=== PATIENT | female | born 1965 | race Hispanic/Latino ===

== ENCOUNTER 2021-02-21 12:18 | Observation (INO) | payer MEDICAID, OTHER ==
--- NOTE | 2021-02-21 12:40 | Emergency Department Report ---
ED General Adult HPI - General Chief complaint: Chest Pain Stated complaint: CHEST PAIN PUI?: No Time Seen by Provider: 02/21/21 12:27 Source: patient, EMS (Verbal report received from emergency medical services. EMS documentation not available at time of chart dictation ), RN notes reviewed Mode of arrival: Stretcher Limitations: No Limitations - History of Present Illness Initial comments: The patient was evaluated in the emergency department for symptoms described in the history of present illness. He/she was evaluated in the context of the global COVID-19 pandemic, which necessitated consideration that the patient mi ght be at risk for infection with the virus that causes COVID-19. Institutional protocols and algorithms that pertain to the evaluation of patients at risk for COVID-19 are in a state of rapid change based on information released by regulatory bodies including the CDC and federal and state organizations. These policies and algorithms were followed during the patient's care in the emergency department. Please note that these policies, procedures and recommendations changed on a rapid basis. Patient is a 56-year-old female. She is not known to myself previously. Her past medical history includes obesity, hypertension, heart disease with stent, on daily aspirin therapy. She moved here from [facility] a few weeks ago. She reports that in October of this year, she had a heart attack at [facility], and was treated with a stent. She does not know if she has a drug-eluting stent or bare metal stent, but she does know that it is a [employer] stent. She is compliant with her aspirin therapy. She presents to the ER today with a complaint of central and left-sided chest pain, that moved to the back, neck and left arm. There is no vomiting. There is no diaphoresis. There is positive chronic cough, and positive chronic shortness of breath. Denies travel, surgery, immobilization, leg pain and leg swelling. Also endorses nontraumatic right posterior paralumbar thoracic pain, "I am worried about a blood clot." Also endorses chronic abdominal pain. On review of systems, has not had loss of taste or smell, reports that she cannot get the Covid vaccination, "because I am allergic to everything in it." Also denies dysuria, denies hematemesis and melena. She has internal hemorrhoids, and reports of brown stool with blood a few days ago, but nothing within the past 24 to 48 hours. She took aspirin this morning. She has also taken nitroglycerin. Minimal improvement with nitroglycerin. Does not use any recreational drugs, or erectil e dysfunction medication. -: Gradual, hour(s) Location: chest, back, abdomen Radiation: neck, extremity Quality: aching Consistency: intermittent Improves with: rest Worsens with: medication - Related Data Home Medications Medication Instructions Recorded Confirmed Last Taken Aspirin 81 mg PO DAILY 02/21/21 02/21/21 02/21/21 Montelukast Sodium 10 mg PO DAILY 02/21/21 02/21/21 Unknown Nitroglycerin 0.4 mg SUBLINGUAL PRN 02/21/21 02/21/21 02/21/21 Prasugrel 10 mg PO DAILY 02/21/21 02/21/21 02/21/21 Pregabalin 100 mg PO TID 02/21/21 02/21/21 02/21/21 Primidone 50 mg PO BID 02/21/21 02/21/21 02/21/21 Promethazine 25 mg PO Q6HR 02/21/21 02/21/21 Unknown Simvastatin 20 mg PO QPM 02/21/21 02/21/21 02/21/21 Spironolactone 25 mg PO DAILY 02/21/21 02/21/21 02/21/21 carvediloL 12.5 mg PO BID 02/21/21 02/21/21 02/21/21 Allergies Allergy/AdvReac Type Severity Reaction Status Date / Time duloxetine Allergy Rash Verified 02/21/21 12:57 lisinopril Allergy Hives Verified 02/21/21 12:57 metformin Allergy Hives Verified 02/21/21 12:57 Penicillins Allergy Angioedema Verified 02/21/21 16:52 sulpiride Allergy Hives Verified 02/21/21 12:57 codeine AdvReac Seizure Verified 02/21/21 12:49 ED Review of Systems ROS: Stated complaint: CHEST PAIN Other details as noted in HPI Constitutional: malaise. denies: fever Eyes: denies: eye discharge ENT: denies: epistaxis Respiratory: cough, shortness of breath Cardiovascular: chest pain Gastrointestinal: abdominal pain. denies: vomiting, hematemesis, melena Genitourinary: denies: dysuria Musculoskeletal: back pain Neurological: weakness Hematological/Lymphatic: denies: easy bleeding ED Past Medical Hx - Medications Home Medications: Home Medications Medication Instructions Recorded Confirmed Last Taken Type Aspirin 81 mg PO DAILY 02/21/21 02/21/21 02/21/21 History Montelukast Sodium 10 mg PO DAILY 02/21/21 02/21/21 Unknown History Nitroglycerin 0.4 mg SUBLINGUAL PRN 02/21/21 02/21/21 02/21/21 History Prasugrel 10 mg PO DAILY 02/21/21 02/21/21 02/21/21 History Pregabalin 100 mg PO TID 02/21/21 02/21/21 02/21/21 History Primidone 50 mg PO BID 02/21/21 02/21/21 02/21/21 History Promethazine 25 mg PO Q6HR 02/21/21 02/21/21 Unknown History Simvastatin 20 mg PO QPM 02/21/21 02/21/21 02/21/21 History Spironolactone 25 mg PO DAILY 02/21/21 02/21/21 02/21/21 History carvediloL 12.5 mg PO BID 02/21/21 02/21/21 02/21/21 History ED Physical Exam - General Limitations: No Limitations General appearance: alert, anxious, obese - Head Head exam: Present: atraumatic, normocephalic - Eye Eye exam: Present: normal appearance, EOMI. Absent: nystagmus - ENT ENT exam: Present: normal exam, normal orophraynx, mucous membranes moist, normal external ear exam - Neck Neck exam: Present: normal inspection, full ROM. Absent: tenderness, me ningismus - Respiratory Respiratory exam: Present: rhonchi. Absent: respiratory distress, wheezes, rales, stridor, decreased breath sounds - Cardiovascular Cardiovascular Exam: Present: regular rate, normal rhythm, normal heart sounds. Absent: bradycardia, tachycardia, irregular rhythm, systolic murmur, diastolic murmur, rubs, gallop - GI/Abdominal GI/Abdominal exam: Present: soft, tenderness. Absent: distended, guarding, rebound, rigid, pulsatile mass - Extremities Exam Extremities exam: Present: normal inspection, other (2+ pulses noted in the bilateral upper and lower extremities. There is no palpable cord. negative Homans sign. Muscular compartments are soft. The pelvis is stable.). Absent: calf tenderness - Back Exam Back exam: Present: normal inspection, CVA tenderness (L), paraspinal tenderness (There is right-sided parathoracic tenderness, near the distal T-spine. There is skin induration. There is no redness, pus or streaking.). Absent: vertebral tenderness (There is no midline spinal tenderness) - Neurological Exam Neurological exam: Present: alert, oriented X3, other (No facial droop. Tongue midline. Extraocular movements intact bilaterally. Facial sensation intact to light touch in V1, V2, V3 distribution bilaterally. 5 and a 5 strength in 4 extremities. Sensation intact to light touch in 4 extremities.). Absent: motor sensory deficit - Psychiatric Psychiatric exam: Present: anxious - Skin Skin exam: Present: warm, dry, intact, normal color. Absent: rash ED Course Vital Signs 02/21/21 02/21/21 02/21/21 12:53 13:34 13:40 Temperature 98.0 F Pulse Rate 69 65 Respiratory 20 16 Rate Blood Pressure 112/63 110/51 O2 Sat by Pulse 96 Oximetry 02/21/21 02/21/21 02/21/21 14:01 14:31 15:00 Temperature Pulse Rate 69 64 64 Respiratory 14 16 16 Rate Blood Pressure O2 Sat by Pulse 94 94 Oximetry 02/21/21 02/21/21 02/21/21 15:33 16:01 16:31 Temperature Pulse Rate 64 60 62 Respiratory 11 L 11 L 14 Rate Blood Pressure 143/66 123/51 116/89 O2 Sat by Pulse 97 96 91 Oximetry 02/21/21 02/21/21 02/21/21 16:41 16:51 17:01 Temperature Pulse Rate 65 Respiratory 13 Rate Blood Pressure 116/89 116/89 116/89 O2 Sat by Pulse 93 95 95 Oximetry 02/21/21 17:11 Temperature Pulse Rate Respiratory Rate Blood Pressure 116/89 O2 Sat by Pulse 91 Oximetry - Reevaluation(s) Reevaluation #1: 02/21/21 13:05 Differential diagnosis, including but not limited to: Acute coronary syndrome, pulmonary embolism, skin induration, colitis, diverticulitis, perforated viscus, and, renal colic, urinary tract infection Assessment and plan: 56-year-old female with multiple complaints. Complaint #1, chest pain. Patient has a history of ischemic heart disease. Her clinical history is concerning today. Her EKG is abnormal but not immediately diagnostic. We have requested medical records from [facility]. Obtain appropriate laboratory studies, and treat the patient's pain. She states that she can tolerate morphine and is not allergic. Anticipate admission for cardiac or stratification. Pulmonary embolism also possibility. Complaints #2, chronic abdominal pain. Obtain appropriate laboratory studies. Treat pain. Obtain CT scan of the abdomen pelvis. Reassess. We anticipate admission to the medical service once diagnostics have resulted. I have discussed this plan of care with the patient, who articulated understanding, and is amenable to this plan of care. Reevaluation #2: 02/21/21 14:04 Medical records are obtained from [facility]. Patient had laparoscopic cholecystectomy performed, October 2020, for biliary dyskinesia. It appears that she was also admitted to the internal medicine service and has a history of nonobstructive coronary artery disease, with reported IA at the age of 38 while in [place], lower extremity edema, morbid obesity, COPD, and obstructive sleep apnea. Patient also called as a STEMI alert at that time. She was found to have an inferior wall STEMI. Her cardiac catheterization showed a high-grade thrombotic subtotal occlusion in the circumflex/OM. Patient had emergent revascularization with placement of a drug-eluting stent. She subsequently had an echocardiogram which demonstrated a normal ejection fraction. She was monitored for 48 hours post IA, and did not have any significant arrhythmias. Patient was then reevaluated it appears that she was discharged from the emergency room. December 2020, with a complaint of left-sided chest pain that radiates to the back. it appears that she was discharged from the emergency room She also had an MRI of her lumbar spine, December 2020, which demonstrated stable findings of mid to lower lumbar spondylolysis, disc protrusions redemonstrated L4, L5, found to be stable, with no lumbar nerve impingement or entrapment. No compression fracture, deformity, or bone marrow abnormality was also noted. She also had an MRI of her cervical spine, which showed changes of mild spondylosis, C5 and 6, right neuroforaminal narrowing, mild ventral cord impingement by a small broad-based disc protrusion at C3/4. These findings are unchanged from a prior CT scan from 4 years prior. She was not found to have any subluxation or posttraumatic findings. Reevaluation #3: 02/21/21 15:42 Patient's pain was improved with morphine and nitroglycerin. Dr. Gibson will accept this patient to the medical service for accelerated cardiac risk ratification. Reevaluation #4: 02/21/21 16:07 CT angio chest negative for acute findings. Reevaluation #5: 02/21/21 16:16 CT scan of the abdomen pelvis negative for acute findings. ED Medical Decision Making - Lab Data Result diagrams: 02/22/21 05:28 02/22/21 05:28 Vital Signs 02/21/21 12:53 Temperature 98.0 F Pulse Rate 69 Respiratory 20 Rate Blood Pressure 112/63 O2 Sat by Pulse 96 Oximetry - EKG Data -: EKG Interpreted by [facility] EKG shows normal: sinus rhythm Rate: normal - EKG Data When compared to previous EKG there are: previous EKG unavailable 02/21/21 13:07 EKG interpreted at 12: 42 Sinus rhythm, 76 bpm, normal axis, nonspecific T wave abnormalities, low voltage in the lateral leads, motion artifact, QTC 468 ms. This is an abnormal EKG. This is not a STEMI. There is no prior for comparison at this time. - Radiology Data Radiology results: pending, report reviewed, image reviewed [facility] [address] [place] [address] XRay Report Signed Patient: LAURYN LEACH MR#: [id number] : 1965 Acct:[id number] Age/Sex: 56 / F ADM Date: 02/21/21 Loc: ED Attending DrKieran cox Physician: VAN CASTILLO MD Date of Service: 02/21/21 Procedure(s): XR chest 1V ap Accession Number(s): [id number] cc: VAN CASTILLO MD Fluoro Time In Minutes: XR chest 1V ap INDICATION / CLINICAL INFORMATION: acute chest pain. COMPARISON: None available. FINDINGS: SUPPORT DEVICES: None. HEART /PULMONARY VASCULATURE: Cardiac silhouette is enlarged without significant pulmonary vasculature congestion. LUNGS / PLEURA: No significant pulmonary or pleural abnormality. No pneumothorax. ADDITIONAL FINDINGS: No significant additional findings. IMPRESSION: Cardiomegaly without overt failure or other acute chest process. Signer Name: Edu Kwon MD Signed: 02/21/2021 2:19 PM Workstation Name: [id number] Transcribed By: HALEY Dictated By: EDU KWON MD Electronically Authenticated By: EDU KWON MD Signed Date/Time: 02/21/211418 DD/ 1418 Critical Care Time: Yes Critical care time in (mins) excluding proc time.: 35 Critical care attestation.: If time is entered above; I have spent that time in minutes in the direct care of this critically ill patient, excluding procedure time. ED Disposition Clinical Impression: Acute chest pain, Acute abdominal pain, Coronary artery disease Disposition: OP ADMIT IP TO THIS HOSP Is pt being admited?: Yes Does the pt Need Aspirin: No (Took aspirin today) Condition: Good Heart Score - HEART Score History: Moderately suspicious EKG: Non-specific Age: 45-65 Risk factors: > 3 risk factors or hx of atherosclerotic disease Troponin: < normal limit HEART Score: 5 - EKG Read Time Time EKG Completed: 12:42 EKG Read Time: 12:43 - Critical Actions Critical Actions: 4-6 pts:12-16.6% risk of adverse cardiac event. Should be admitted
[2021-02-21] MEDS ORDERED: MORPHINE 4 MG/1 ML INJ IV ONE (12:55)
[2021-02-21 13:14] LABS: Basophils # (Auto) 0.1 K/mm3 (0.0-0.1); Basophils % (Auto) 0.7 % (0.0-1.8); Eosinophils # (Auto) 0.2 K/mm3 (0.0-0.4); Eosinophils % (Auto) 2.4 % (0.0-4.3); Hematocrit 36.5 % (30.3-42.9); Hemoglobin 12.5 gm/dl (10.1-14.3); Lymphocytes # (Auto) 1.7 K/mm3 (1.2-5.4); Lymphocytes % (Auto) 23.5 % (13.4-35.0); Mean Corpuscular HGB Conc 34 % (30-34); Mean Corpuscular Volume 87 fl (79-97); Monocytes # (Auto) 0.4 K/mm3 (0.0-0.8); Monocytes % (Auto) 5.3 % (0.0-7.3); Platelet Count 292 K/mm3 (140-440); Red Blood Count 4.21 M/mm3 (3.65-5.03); Red Cell Distribution Width 15.4 % (13.2-15.2)
[2021-02-21 13:24] LABS: INR 0.93 (0.87-1.13)
[2021-02-21] MEDS ORDERED: NITROGLYCERIN 0.4 MG TAB SUBL SL PRN ×2 (13:37→17:00)
[2021-02-21] MEDS ORDERED: ONDANSETRON 4 MG/2 ML INJ IV ONE (13:37)
[2021-02-21] MEDS ORDERED: SODIUM CHLORIDE 0.9% 1000 ML 500 ML IV ONE (13:37)
[2021-02-21 13:40] LABS: Alanine Aminotransferase 18 units/L (7-56); Albumin 4.2 g/dL (3.9-5); Blood Urea Nitrogen 11 mg/dL (7-17); Calcium 9.3 mg/dL (8.4-10.2); Hemolysis Index 9
[2021-02-21 13:47] LABS: BUN/Creatinine Ratio 16
--- NOTE | 2021-02-21 14:23 | XRay Report ---
XR chest 1V ap INDICATION / CLINICAL INFORMATION: acute chest pain. COMPARISON: None available. FINDINGS: SUPPORT DEVICES: None. HEART /PULMONARY VASCULATURE: Cardiac silhouette is enlarged without significant pulmonary vasculatur e congestion. LUNGS / PLEURA: No significant pulmonary or pleural abnormality. No pneumothorax. ADDITIONAL FINDINGS: No significant additional findings. IMPRESSION: Cardiomegaly without overt failure or other acute chest process. Signer Name: Jairon Kwon MD Signed: 02/21/2021 2:19 PM Workstation Name: [id number]
--- NOTE | 2021-02-21 16:05 | Cat Scan Report ---
CTA CHEST WITH IV CONTRAST INDICATION / CLINICAL INFORMATION: acute cp, back pain 100 ML OMNI 350 . TECHNIQUE: Axial CT images were obtained through the chest after injection of 100 cc Omnipaque 350 milligrams pe rcent IV were submitted to ca IV contrast. 3 plane MIP and/or 3D reconstructions were produced. All C T scans at this location are performed using CT dose reduction for ALARA by means of automated exposu re control. COMPARISON: None available. FINDINGS: PULMONARY ARTERIES: No pulmonary emboli. THORACIC AORTA: No significant abnormality. HEART: No significant abnormality. CORONARY ARTERIES: No significant calcification. PLEURA: No pleural effusion. No pneumothorax. LYMPH NODES: No significant adenopathy. LUNGS: Chronic lung disease is present No acute air space or interstitial disease. ADDITIONAL FINDINGS: None. UPPER ABDOMEN: No acute findings. SKELETAL STRUCTURES: No significant osseous abnormality. IMPRESSION: 1. No CT evidence for pulmonary embolism. 2. Chronic lung disease Signer Name: Navneet Plunkett MD Signed: 02/21/2021 3:58 PM Workstation Name: [id number]
--- NOTE | 2021-02-21 16:09 | Cat Scan Report ---
CTA chest with contrast CT abdomen and pelvis with contrast INDICATION : abd pain, chest pain, back pain 100 ML OMNI 350 . TECHNIQUE: Axial imaging performed through the chest, with contrast bolus timing set to maximize opa cification of the pulmonary arteries. 3-plane MIP reformatted images were obtained. Axial imaging was also performed through the abdomen and pelvis with the use of intravenous contrast. All CT scans at this location are performed using CT dose reduction for ALARA by means of automated exposure control. 100 mL of intravenous contrast administered. COMPARISON: None FINDINGS: CTA chest: Contrast bolus timing is adequate with no filling defect present to suggest PTE. There is mild atherosclerotic disease in the coronary arteries. Heart size is normal. No pathologic mediastina l adenopathy. There is severe emphysema with no mass identified. There is a primarily groundglass nod ule in the left upper lobe measuring 7 x 4 mm on image #68 of series #4. Mild bibasilar atelectasis i s present. No chest wall abnormality identified. There is mild degenerative change within the spine w ith no acute osseous abnormality identified. CT abdomen/pelvis: The gallbladder is surgically absent. The liver demonstrates mild steatosis with n o focal mass. The spleen, angry as, adrenals, kidneys, and proximal GI tract appear unremarkable exce pt for a small hiatal hernia. There is moderate atherosclerotic disease in the abdominal aorta and br anch vessels. No pelvic free fluid. The urinary bladder is mostly collapsed. Uterus is surgically absent. No acute colonic abnormality identified. The terminal ileum and appendix appear normal. There are degenerative changes in the spine and pelvis with nothing acute. IMPRESSION: 1. Negative for PTE. The thoracic aorta also appears normal. 2. Advanced emphysema with primarily groundglass nodule in the left upper lobe measuring [address] see below recommendations. 3. No acute abnormality in the abdomen or pelvis. INCIDENTAL PULMONARY NODULE RECOMMENDATION RECOMMENDATION: Subsolid Nodule (Ground glass) >=6 mm - CT at 6-12 months to confirm persistence, then CT every 2 years until 5 years Note These recommendations do not apply to lung cancer screening, patients with immunosuppression, o r patients with known primary cancer. Note Newly detected indeterminate nodule in persons 35 years of age or older. Persons under the age of 35 should not receive follow-up unless there is a known primary cancer. Note A Perifissural Nodule is a fissure-attached/subpleural, homogeneous, solid nodule that had smoo th margins and an oval, lentiform, or triangular shape. They represent about 20% of nodules detected in lung cancer screening, are invariably benign, and do not require follow-up. Nodules 10 mm or large r (or those with suspicious features) will continue to be managed based on the size criteria. Low Risk Patient -- minimal or absent history of smoking and of other known risk factors. High Risk Patient -- history of smoking or of other known risk factors. Nodule dimensions are average of long and short axes, rounded to the nearest millimeter. Based on 2017 Fleischner Society Guidelines found in Radiology 2017 284:228-243. https://doi.[email or web address]/[email or web address] https://www.ncbi.nlm.nih.gov/pmc/articles/CQB8521966/ Signer Name: Masood Hickman MD Signed: 02/21/2021 4:03 PM Workstation Name: [id number]
--- NOTE | 2021-02-21 16:51 | History and Physical Report ---
History of Present Illness Date of examination: 02/21/21 Date of admission: 02/21/21 15:43 Chief complaint: Chest pain History of present illness: Patient 56-year-old female with a comorbid illness of morbid obesity, diabetes, hyperlipidemia and hypertension presents with an acute episode of chest pain. Patient states she was laying down in bed and had an acute episode of chest pain substernal radiating to her back down her left arm and occasionally into the ne ck. Chest pain was associated with shortness of breath and diaphoresis. Patient had nausea but no vomiting. Patient took nitroglycerin x2 and aspirin x2 with minimal relief and therefore called 911. Patient has had history of a recent [place] with stent placed for two-vessel disease in [place] on October 2020 several months ago. Patient states since that time she had been chest pain-free since her stent placement but this is the first time she had chest pain today. Patient is currently chest pain-free feels comfortable. Vital signs stable. Initial work-up in ED has found to be negative. Patient has had negative troponin EKG nonspecific D-dimer unremarkable. Did follow-up on CT scan chest abdomen pelvis also unremarkable. See chronic changes that will be noted in assessment and plan. Past History Past Medical History: acute [place], arrhythmia, CAD, diabetes, GERD, heart failure, hypertension, hyperlipidemia. denies: atrial fib, anemia, arthritis, cancer, COPD, dialysis, DVT, ESRD, hepatitis, HIV/AIDS, hyperthyroidism, hypothyroidism, liver disease, migraines, PVD, pulmonary embolism, renal failure, seizures, stroke, sarcoidosis Past Surgical History: cholecystectomy, hysterectomy, hernia repair, total knee replacement, Other (Surgical history) Social history: no significant social history, lives with family, smoking. denies: alcohol abuse, prescription drug abuse Family history: CAD, cancer, other (Significant past medical history mother and father both early with heart disease. Also breast cancer on maternal side of the family.) Medications and Allergies Allergies Allergy/AdvReac Type Severity Reaction Status Date / Time duloxetine Allergy Rash Verified 02/21/21 12:57 lisinopril Allergy Hives Verified 02/21/21 12:57 metformin Allergy Hives Verified 02/21/21 12:57 Penicillins Allergy Angioedema Verified 02/21/21 16:52 sulpiride Allergy Hives Verified 02/21/21 12:57 codeine AdvReac Seizure Verified 02/21/21 12:49 Home Medications Medication Instructions Recorded Confirmed Last Taken Type Aspirin 81 mg PO DAILY 02/21/21 02/21/21 02/21/21 History Montelukast Sodium 10 mg PO DAILY 02/21/21 02/21/21 Unknown History Nitroglycerin 0.4 mg SUBLINGUAL PRN 02/21/21 02/21/21 02/21/21 History Prasugrel 10 mg PO DAILY 02/21/21 02/21/21 02/21/21 History Pregabalin 100 mg PO TID 02/21/21 02/21/21 02/21/21 History Primidone 50 mg PO BID 02/21/21 02/21/21 02/21/21 History Promethazine 25 mg PO Q6HR 02/21/21 02/21/21 Unknown History Simvastatin 20 mg PO QPM 02/21/21 02/21/21 02/21/21 History Spironolactone 25 mg PO DAILY 02/21/21 02/21/21 02/21/21 History carvediloL 12.5 mg PO BID 02/21/21 02/21/21 02/21/21 History Active Meds: Active Medications Nitroglycerin (Nitroglycerin 0.4 Mg Tab Subl) 0.4 mg SL .Q5MIN PRN PRN Reason: Chest Pain Last Admin: 02/21/21 13:34 Dose: 0.4 mg Documented by: Review of Systems Constitutional: no weight loss, no weight gain, no fever, no chills, no sweats, no anorexia Ears, nose, mouth and throat: no ear pain, no decreased hearing, no mouth pain, no hoarseness Cardiovascular: chest pain, palpitations, lightheadedness, shortness of breath, leg edema, no orthopnea, no rapid/irregular heart beat, no edema, no syncope, no dyspnea on exertion, no paroxysmal nocturnal dyspnea, no claudication, no phlebitis, no high blood pressure, no decreased exercise tolerance Respiratory: shortness of breath, no cough, no excessive sputum, no hemoptysis, no congestion, no wheezing, no pain, no respiratory infections, no home oxygen Gastrointestinal: no abdominal pain, no nausea, no vomiting, no constipation, no change in bowel habits, no melena, no loss of appetite, no early satiety, no dyspepsia/bloating Musculoskeletal: shooting arm pain, no morning stiffness, no muscle cramps, no limitation of motion, no fractures, no loss of height Neurological: no transient paralysis, no weakness, no numbness, no seizures, no headaches, no confusion, no sensory deficit, no loss of vision, no burning pain Psychiatric: no sleep disturbances, no change in libido, no suicidal ideation, no hopelessness, no difficulties concentrating, no irritability Endocrine: no heat intolerance, no polyphagia, no polydipsia, no nocturia, no proptosis, no thyroid mass, no high blood sugars, no recent glucocorticoid use Hematologic/Lymphatic: no easy bruising, no lymphadenopathy Allergic/Immunologic: no allergic rhinitis, no anaphylaxis Exam - Constitutional Vitals: Temp Pulse Resp BP Pulse Ox 98.0 F 62 14 116/89 91 02/21/21 12:53 02/21/21 16:31 02/21/21 16:31 02/21/21 16:31 02/21/21 16:31 General appearance: Present: no acute distress, well-nourished - EENT Eyes: Present: PERRL ENT: hearing intact, clear oral mucosa - Neck Neck: Present: supple, normal ROM - Respiratory Respiratory effort: normal Respiratory: bilateral: CTA - Cardiovascular Heart Sounds: Present: S1 & S2. Absent: rub, click - Extremities Extremities: pulses symmetrical, No edema Peripheral Pulses: within normal limits - Abdominal General gastrointestinal: Present: soft, non-tender, non-distended, normal bowel sounds Female genitourinary: Present: normal - Integumentary Integumentary: Present: clear, warm, dry - Musculoskeletal Musculoskeletal: gait normal, strength equal bilaterally - Psychiatric Psychiatric: appropriate mood/affect, intact judgment & insight - Neurologic Neurologic: CNII-XII intact, moves all extremities HEART Score - HEART Score EKG: Non-specific Age: 45-65 Risk factors: > 3 risk factors or hx of atherosclerotic disease Troponin: Troponin T < 0.010 ng/mL (0.00-0.029) 02/21/21 12:50 Troponin: < normal limit - Critical Actions Critical Actions: 4-6 pts:12-16.6% risk of adverse cardiac event. Should be admitted Results - Labs CBC & Chem 7: 02/21/21 12:50 02/21/21 12:50 Labs: Laboratory Last Values WBC 7.4 K/mm3 (4.5-11.0) 02/21/21 12:50 RBC 4.21 M/mm3 (3.65-5.03) 02/21/21 12:50 Hgb 12.5 gm/dl (10.1-14.3) 02/21/21 12:50 Hct 36.5 % (30.3-42.9) 02/21/21 12:50 MCV 87 fl (79-97) 02/21/21 12:50 MCH 30 pg (28-32) 02/21/21 12:50 MCHC 34 % (30-34) 02/21/21 12:50 RDW 15.4 % (13.2-15.2) H 02/21/21 12:50 Plt Count 292 K/mm3 (140-440) 02/21/21 12:50 Lymph % (Auto) 23.5 % (13.4-35.0) 02/21/21 12:50 [place] % (Auto) 5.3 % (0.0-7.3) 02/21/21 12:50 Eos % (Auto) 2.4 % (0.0-4.3) 02/21/21 12:50 Baso % (Auto) 0.7 % (0.0-1.8) 02/21/21 12:50 Lymph # (Auto) 1.7 K/mm3 (1.2-5.4) 02/21/21 12:50 [place] # (Auto) 0.4 K/mm3 (0.0-0.8) 02/21/21 12:50 Eos # (Auto) 0.2 K/mm3 (0.0-0.4) 02/21/21 12:50 Baso # (Auto) 0.1 K/mm3 (0.0-0.1) 02/21/21 12:50 Seg Neutrophils % 68.1 % (40.0-70.0) 02/21/21 12:50 Seg Neutrophils # 5.0 K/mm3 (1.8-7.7) 02/21/21 12:50 PT 13.0 Sec. (12.2-14.9) 02/21/21 12:50 INR 0.93 (0.87-1.13) 02/21/21 12:50 D-Dimer 155.19 ng/mlDDU (0-234) 02/21/21 12:50 Sodium 135 mmol/L (137-145) L 02/21/21 12:50 Potassium 4.0 mmol/L (3.6-5.0) 02/21/21 12:50 Chloride 101.4 mmol/L (98-107) 02/21/21 12:50 Carbon Dioxide 23 mmol/L (22-30) 02/21/21 12:50 Anion Gap 15 mmol/L 02/21/21 12:50 BUN 11 mg/dL (7-17) 02/21/21 12:50 Creatinine 0.7 mg/dL (0.6-1.2) 02/21/21 12:50 Estimated GFR > 60 ml/min 02/21/21 12:50 BUN/Creatinine Ratio 16 % 02/21/21 12:50 Glucose 94 mg/dL (65-100) 02/21/21 12:50 Calcium 9.3 mg/dL (8.4-10.2) 02/21/21 12:50 Magnesium 2.00 mg/dL (1.7-2.3) 02/21/21 12:50 Total Bilirubin 0.40 mg/dL (0.1-1.2) 02/21/21 12:50 AST 17 units/L (5-40) 02/21/21 12:50 ALT 18 units/L (7-56) 02/21/21 12:50 Alkaline Phosphatase 107 units/L (35-129) 02/21/21 12:50 Total Creatine Kinase 51 units/L (30-135) 02/21/21 12:50 Troponin T < 0.010 ng/mL (0.00-0.029) 02/21/21 12:50 Total Protein 6.4 g/dL (6.3-8.2) 02/21/21 12:50 Albumin 4.2 g/dL (3.9-5) 02/21/21 12:50 Albumin/Globulin Ratio 1.9 % 02/21/21 12:50 Lipase 16 units/L (13-60) 02/21/21 12:50 - Imaging and Cardiology EKG: report reviewed, image reviewed Chest x-ray: report reviewed CT scan - abdomen: report reviewed CT scan - chest: report reviewed Assessment and Plan Advance Directives: Yes VTE prophylaxis?: Chemical Plan of care discussed with patient/family: Yes - Patient Problems (1) Acute abdominal pain Current Visit: Yes Status: Acute Plan to address problem: Abdominal pain has resolved this was most likely chest pain. Gastritis we will treat with proton pump inhibitor. (2) Acute chest pain Current Visit: Yes Status: Acute Plan to address problem: Acute chest pain patient heart score 4-5. Patient will most likely require follow-up cardiac catheterization since she just had stent placed several months ago. And now has persistent chest pain. Will most likely need eval of stent to see if it is maintained is patency obtain cardiology consult [facility] for further diagnostic evaluation and assessment. will rule out for [place] at this time. Continue nitroglycerin as needed aspirin daily. Cont risk stratification (3) Coronary artery disease Current Visit: Yes Status: Acute Plan to address problem: Patient two-vessel disease status post stent will place patient on antithrombin and antiplatelet in which she was already on secondary to recent stent placemet will place patient back on antistatin. Has been recently restratified several months ago less than 90 days with lipid panel. Will repeat lipid panel and see if medications need to be adjusted. There has been adequate time for follow-up lipid panel to optimize statin (4) Diabetes Current Visit: Yes Status: Acute Plan to address problem: Type II patient currently not taking any medications for her diabetes. Will follow with sliding scale insulin and treat with cardiac diet and consistent carbohydrate diet. (5) Hyperlipidemia Current Visit: Yes Status: Acute Plan to address problem: Continue statin as indicated.
[2021-02-21] MEDS ORDERED: ACETAMINOPHEN 325 MG TAB PO PRN ×2 (17:00)
[2021-02-21] MEDS ORDERED: oxyCODONE /ACETAMINOPHEN 5-325MG TAB PO PRN (17:00)
[2021-02-21] MEDS ORDERED: NALOXONE 0.4 MG/1 ML INJ IV PRN (17:00)
[2021-02-21] MEDS ORDERED: NON-FORMULARY EACH (Spironolactone 25 MG) PO SCH (17:30)
[2021-02-21] MEDS ORDERED: NON-FORMULARY EACH (Nitroglycerin 0.4 MG) SUBLINGUAL SCH (17:30)
[2021-02-21] MEDS ORDERED: ONDANSETRON 4 MG/2 ML INJ IV PRN (17:30)
[2021-02-21] MEDS ORDERED: ASPIRIN EC 81 MG TAB PO SCH (18:00)
[2021-02-21] MEDS ORDERED: SPIRONOLACTONE 25 MG TAB PO SCH (18:30)
[2021-02-21] MEDS ORDERED: PRIMIDONE 50 MG TAB PO SCH (22:00)
[2021-02-21] MEDS ORDERED: ENOXAPARIN 100 MG/1 ML INJ SUB-Q SCH ×2 (22:00)
[2021-02-21] MEDS ORDERED: INSULIN REGULAR, HUMAN 100 UNITS/1 ML SUB-Q SCH (22:00)
[2021-02-21] MEDS ORDERED: carvediloL 12.5 MG TAB PO SCH (22:00)
[2021-02-21] MEDS ORDERED: FAMOTIDINE 20 MG/2 ML INJ IV SCH (22:00)
[2021-02-21 22:13] LABS: Bilirubin,Urine NEG (Negative); Blood,Urine SM (Negative); Color,Urine Yellow (Yellow); Protein,Urine <15 mg/dL mg/dL (Negative); Urobilinogen,Urine < 2.0 mg/dL (<2.0)
[2021-02-22 04:33] VITALS: BP 106/50
[2021-02-22 05:50] LABS: Basophils # (Auto) 0.1 K/mm3 (0.0-0.1); Basophils % (Auto) 0.9 % (0.0-1.8); Eosinophils # (Auto) 0.2 K/mm3 (0.0-0.4); Hematocrit 35.9 % (30.3-42.9); Hemoglobin 12.1 gm/dl (10.1-14.3); Lymphocytes % (Auto) 31.8 % (13.4-35.0); Mean Corpuscular HGB Conc 34 % (30-34); Mean Corpuscular Volume 87 fl (79-97); Monocytes # (Auto) 0.4 K/mm3 (0.0-0.8); Monocytes % (Auto) 6.2 % (0.0-7.3); Platelet Count 279 K/mm3 (140-440); Red Blood Count 4.14 M/mm3 (3.65-5.03); Red Cell Distribution Width 15.2 % (13.2-15.2)
[2021-02-22 06:15] LABS: BUN/Creatinine Ratio 13; Blood Urea Nitrogen 10 mg/dL (7-17); Chol/HDL Ratio 4.87 %; HDL Cholesterol 33 mg/dL (40-59); Hemolysis Index 63; LDL Cholesterol,Direct 118 mg/dL (50-130)
[2021-02-22] MEDS ORDERED: PREGABALIN 50 MG CAP PO SCH (10:00)
[2021-02-22] MEDS ORDERED: PRASUGREL 10 MG TAB PO SCH (10:00)
--- NOTE | 2021-02-22 10:05 | Discharge Summary ---
Providers - Providers Date of Admission: 02/21/21 15:43 Date of discharge: 02/22/21 Attending physician: JEFERSON GROSS 02/21/21 Consult to Cardiac Rehabilitation [CONS] Routine Reason For Exam: Phase 1 02/21/21 17:00 Consult to Cardiology [CONS] Routine Consulting Provider: NURIA JACOBSON Reason For Exam: cp Primary care physician: DATA WAREHOUSE MANAGER Hospitalization Reason for admission: cp Condition: Good Hospital course: Patient 56-year-old female with a comorbid illness of morbid obesity, diabetes, hyperlipidemia and hypertension presents with an acute episode of chest pain. Patient stated she was laying down in bed and had an acute episode of chest pain substernal radiating to her back down her left arm and occasionally into the neck. Chest pain was associated with shortness of breath and diaphoresis. Patient had nausea but no vomiting. Patient took nitroglycerin x2 and aspirin x2 with minimal relief and therefore called 911. Patient has had history of a recent [place] with stent placed for two-vessel disease in [place] on October 2020 several months ago. Patient stated since that time she had been chest pain-free since her stent placement but this is the first time she had chest pain yesterday. Initial work-up in ED has found to be negative. Patient has had negative troponin EKG nonspecific D-dimer unremarkable. Did follow-up on CT scan chest abdomen pelvis also unremarkable. The history was taken from the chart from Dr. Gibson's H&P. Cardiology consultation was arranged. Patient was monitored on telemetry. Unfortunately, patient left AMA prior to my interview and examination. Dedicated discharge time 32 minutes Disposition: DC-07 LEFT AGAINST MED ADVICE Final Discharge Diagnosis (Prints w/discharge instructions): cp Core Measure Documentation - Palliative Care Palliative Care/ Comfort Measures: Not Applicable - Core Measures Any of the following diagnoses?: none Exam - Constitutional Vitals: Temp Pulse Resp BP Pulse Ox 97.9 F 92 H 24 106/50 99 02/22/21 03:59 02/22/21 05:04 02/22/21 05:04 02/22/21 03:59 02/22/21 05:04 General appearance: Present: no acute distress, well-nourished - EENT Eyes: Present: PERRL ENT: hearing intact, clear oral mucosa - Neck Neck: Present: supple, normal ROM - Respiratory Respiratory effort: normal Respiratory: bilateral: CTA - Cardiovascular Heart Sounds: Present: S1 & S2. Absent: rub, click - Extremities Extremities: pulses symmetrical, No edema Peripheral Pulses: within normal limits - Abdominal General gastrointestinal: Present: soft, non-tender, non-distended, normal bowel sounds Female genitourinary: Present: normal - Integumentary Integumentary: Present: clear, warm, dry - Musculoskeletal Musculoskeletal: gait normal, strength equal bilaterally - Psychiatric Psychiatric: appropriate mood/affect, intact judgment & insight - Neurologic Neurologic: CNII-XII intact, moves all extremities Plan Follow up with: PRIMARY CARE, [Primary Care Provider] - 3-5 Days Forms: AMA Form
--- NOTE | 2021-03-02 10:44 | Electrocardiograph Report ---
[facility] Test Date: 2021-02-21 Test Time: 12:42:25 Pat Name: LAURYN LEACH Department: Room: A490 Gender: F It Program Manager: IOANA : [id number] Requested By: VAN CASTILLO Order Number: [id number] Reading MD: Kelsie Snell Measurements Intervals [place] Rate: 76 P: 29 [place]: 136 QRS: 44 QRSD: 78 T: 19 QT: 415 QTc: 468 Interpretive Statements Sinus rhythm Nonspecific T abnormalities, anterior leads No previous ECG available for comparison Electronically Signed On 03-02-2021 10:44:34 EDT by Kelsie Snell
== END 2021-02-22 08:05 | disposition left against medical advice (07) ==
LOC: ED 12:18 → 4A 15:43
PROVIDERS: ADMIT Internal Medicine; ATTEND Hospitalist
DX: I25.10 Atherosclerotic heart disease of native coronary artery without angina pectoris (principal); R07.89 Other chest pain; R10.9 Unspecified abdominal pain; E11.9 Type 2 diabetes mellitus without complications; E78.5 Hyperlipidemia, unspecified; I11.0 Hypertensive heart disease with heart failure; I50.9 Heart failure, unspecified; E66.01 Morbid (severe) obesity due to excess calories; I25.2 Old myocardial infarction; I49.9 Cardiac arrhythmia, unspecified; Z90.49 Acquired absence of other specified parts of digestive tract; Z90.710 Acquired absence of both cervix and uterus; Z79.899 Other long term (current) drug therapy; Z98.890 Other specified postprocedural states; Z96.659 Presence of unspecified artificial knee joint; Z79.82 Long term (current) use of aspirin; Z68.35 Body mass index [BMI] 35.0-35.9, adult
CPT/HCPCS: 36415; 71045; 71275; 74177; 80048; 80053; 80061; 81001; 82550; 82962; 83036; 83690; 83735; 84484; 85025; 85379; 85610; 93005; 96372; 96374; 96375; 99291; G0378; J1650; J2270; J2405; J7030; Q9967; A9270-GY

== ENCOUNTER 2021-07-07 13:18 | Emergency (ER) | payer BC, MEDICAID ==
[2021-07-07 13:37] VITALS: BP 126/63
[2021-07-07] MEDS ORDERED: methylPREDNISolone Sod Succinate 125 MG/2 ML INJ IM ONE (15:01)
--- NOTE | 2021-07-07 15:05 | Emergency Department Report ---
ED General Adult HPI - General Chief complaint: Pain General Stated complaint: BODYACHES HEADACHE Time Seen by Provider: 07/07/21 14:37 Source: patient Mode of arrival: Stretcher Limitations: No Limitations - History of Present Illness Initial comments: 56-year-old female, history of MS, CAD, presents to ED with complaint of MS flare. Patient reports headache and diffuse body pain the last 3 weeks. Patient states she is taking tizanidine and tramadol without relief. Patient reports she is unable to take the medication prescribed for MS because of her sulfa allergy. Patient states her pain is chronic and the same as what she has experienced in the past. Patient states she does not currently have a PCP or neurologist here in [place] because she just moved here. Patient denies any fever -: week(s) (3) Severity scale (0 -10): 10 Quality: aching Consistency: constant Improves with: none Worsens with: none Associated Symptoms: denies: fever/chills, shortness of breath - Related Data Home Medications Medication Instructions Recorded Confirmed Last Taken Aspirin 81 mg PO DAILY 02/21/21 02/21/21 02/21/21 Montelukast Sodium 10 mg PO DAILY 02/21/21 02/21/21 Unknown Nitroglycerin 0.4 mg SUBLINGUAL PRN 02/21/21 02/21/21 02/21/21 Prasugrel 10 mg PO DAILY 02/21/21 02/21/21 02/21/21 Pregabalin 100 mg PO TID 02/21/21 02/21/21 02/21/21 Primidone 50 mg PO BID 02/21/21 02/21/21 02/21/21 Promethazine 25 mg PO Q6HR 02/21/21 02/21/21 Unknown Simvastatin 20 mg PO QPM 02/21/21 02/21/21 02/21/21 Spironolactone 25 mg PO DAILY 02/21/21 02/21/21 02/21/21 carvediloL 12.5 mg PO BID 02/21/21 02/21/21 02/21/21 Previous Rx's Medication Instructions Recorded Last Taken Type Naproxen [Naprosyn] 500 mg PO BID #20 tablet 07/07/21 Unknown Rx traMADoL [Ultram] 50 mg PO Q6HR PRN #7 tablet 07/07/21 Unknown Rx Allergies Allergy/AdvReac Type Severity Reaction Status Date / Time amoxicillin Allergy Unknown Verified 07/07/21 13:38 duloxetine Allergy Rash Verified 02/21/21 12:57 lisinopril Allergy Hives Verified 02/21/21 12:57 metformin Allergy Hives Verified 02/21/21 12:57 Penicillins Allergy Angioedema Verified 02/21/21 16:52 rosuvastatin [From Crestor] Allergy Unknown Verified 07/07/21 13:38 sulpiride Allergy Hives Verified 02/21/21 12:57 codeine AdvReac Seizure Verified 02/21/21 12:49 ED Review of Systems ROS: Stated complaint: BODYACHES HEADACHE Other details as noted in HPI Comment: All other systems reviewed and negative Constitutional: denies: fever Respiratory: denies: shortness of breath ED Past Medical Hx - Past Medical History Hx Hypertension: Yes Hx Heart Attack/AMI: Yes Additional medical history: Degenerative disc disease - Surgical History Hx Cholecystectomy: Yes Additional Surgical History: Bilateral knee surgery, hysterectomy - Social History Smoking Status: Current Every Day Smoker - Medications Home Medications: Home Medications Medication Instructions Recorded Confirmed Last Taken Type Aspirin 81 mg PO DAILY 02/21/21 02/21/21 02/21/21 History Montelukast Sodium 10 mg PO DAILY 02/21/21 02/21/21 Unknown History Nitroglycerin 0.4 mg SUBLINGUAL PRN 02/21/21 02/21/21 02/21/21 History Prasugrel 10 mg PO DAILY 02/21/21 02/21/21 02/21/21 History Pregabalin 100 mg PO TID 02/21/21 02/21/21 02/21/21 History Primidone 50 mg PO BID 02/21/21 02/21/21 02/21/21 History Promethazine 25 mg PO Q6HR 02/21/21 02/21/21 Unknown History Simvastatin 20 mg PO QPM 02/21/21 02/21/21 02/21/21 History Spironolactone 25 mg PO DAILY 02/21/21 02/21/21 02/21/21 History carvediloL 12.5 mg PO BID 02/21/21 02/21/21 02/21/21 History Naproxen [Naprosyn] 500 mg PO BID #20 tablet 07/07/21 Unknown Rx traMADoL [Ultram] 50 mg PO Q6HR PRN #7 tablet 07/07/21 Unknown Rx ED Physical Exam - General Limitations: No Limitations General appearance: alert, in no apparent distress - Head Head exam: Present: atraumatic, normocephalic - Eye Eye exam: Present: normal appearance, EOMI - ENT ENT exam: Present: mucous membranes moist - Neck Neck exam: Present: normal inspection - Respiratory Respiratory exam: Present: normal lung sounds bilaterally. Absent: respiratory distress - Cardiovascular Cardiovascular Exam: Present: regular rate, normal rhythm - GI/Abdominal GI/Abdominal exam: Absent: distended - Extremities Exam Extremities exam: Present: normal inspection - Neurological Exam Neurological exam: Present: alert, oriented X3, normal gait - Psychiatric Psychiatric exam: Present: normal affect, normal mood - Skin Skin exam: Present: warm, dry, intact, normal color ED Course Vital Signs 07/07/21 13:29 Temperature 98.7 F Pulse Rate 72 Respiratory 13 Rate Blood Pressure 126/63 [Left] O2 Sat by Pulse 98 Oximetry ED Medical Decision Making - Medical Decision Making 56-year-old female presents to ED with complaint of MS flare. Patient reports headache and diffuse body pain that is consistent with her usual MS-related pain. Patient denies any change in her pain. She denies any fever. Vital signs are normal. Exam is unremarkable. Patient given Solu-Medrol injection here in the ED. She will be discharged at this time. Outpatient follow-up advised, return cautions given. - Differential Diagnosis Multiple sclerosis, viral illness Critical care attestation.: If time is entered above; I have spent that time in minutes in the direct care of this critically ill patient, excluding procedure time. ED Disposition Clinical Impression: Generalized pain Disposition: 01 HOME / SELF CARE / HOMELESS Is pt being admited?: No Condition: Stable Instructions: Musculoskeletal Pain Prescriptions: Naproxen [Naprosyn] 500 mg PO BID #20 tablet traMADoL [Ultram] 50 mg PO Q6HR PRN #7 tablet PRN Reason: Pain Referrals: [facility] [Provider Group] - 3-5 Days BALTAZAR FARAH MD [Staff Physician] - 3-5 Days TRE RADFORD MD [Staff Physician] - 3-5 Days Time of Disposition: 15:04
== END 2021-07-07 15:23 | disposition home or self-care (01) ==
LOC: ED 13:18
DX: M79.18 Myalgia, other site (principal); I10 Essential (primary) hypertension; F17.200 Nicotine dependence, unspecified, uncomplicated; Z90.49 Acquired absence of other specified parts of digestive tract; Z88.0 Allergy status to penicillin; Z88.8 Allergy status to other drugs, medicaments and biological substances; Z88.5 Allergy status to narcotic agent
CPT/HCPCS: 96372; 99282; J2930

== ENCOUNTER 2022-03-04 13:44 | Emergency (ER) | payer SELFPAY ==
[2022-03-04] MEDS ORDERED: ASPIRIN 81 MG TAB CHEW PO ONE (15:35)
[2022-03-04] MEDS ORDERED: MORPHINE 4 MG/1 ML INJ IV ONE (15:36)
[2022-03-04] MEDS ORDERED: PROMETHAZINE 25 MG TAB PO ONE (16:04)
--- NOTE | 2022-03-04 16:04 | XRay Report ---
CHEST 1 VIEW INDICATION: Chest Pain. COMPARISON: 02/21/2021 FINDINGS: SUPPORT DEVICES: None. HEART: Within normal limits. LUNGS/PLEURA: No acute air space or interstitial disease. ADDITIONAL FINDINGS: None. IMPRESSION: 1. No acute findings. Signer Name: Masood Hickman MD Signed: 03/04/2022 4:00 PM Workstation Name: [id number]
--- NOTE | 2022-03-04 16:09 | Emergency Department Report ---
ED Chest Pain HPI - General Chief Complaint: Chest Pain Stated Complaint: CHEST PAIN Time Seen by Provider: 03/04/22 15:33 Source: patient, EMS Mode of arrival: Stretcher Limitations: No Limitations - History of Present Illness Initial Comments: 57-year-old morbidly obese female with a history of CAD s/p cardiac stent, COPD currently smoking who now presents with intermittent chest pain that started yesterday after an heated argument with family members. Patient was given nitro in route by EMS with some relief in pain. Patient was evaluated by EMS at the house yesterday and cleared/declined coming to the hospital for evaluation. Patient recur today and that was why she called for help. She also reports some sob with nausea and non bloody emesis. No fever or chills reported. Patient also mention history of atrial fibrillation and currently taking carvedilol. No other modifying or associated factors reported. Severity scale (0 -10): 10 - Related Data Home Medications Medication Instructions Recorded Confirmed Last Taken Aspirin 81 mg PO DAILY 02/21/21 02/21/21 02/21/21 Montelukast Sodium 10 mg PO DAILY 02/21/21 02/21/21 Unknown Nitroglycerin 0.4 mg SUBLINGUAL PRN 02/21/21 02/21/21 02/21/21 Prasugrel 10 mg PO DAILY 02/21/21 02/21/21 02/21/21 Pregabalin 100 mg PO TID 02/21/21 02/21/21 02/21/21 Primidone 50 mg PO BID 02/21/21 02/21/21 02/21/21 Promethazine 25 mg PO Q6HR 02/21/21 02/21/21 Unknown Simvastatin 20 mg PO QPM 02/21/21 02/21/21 02/21/21 Spironolactone 25 mg PO DAILY 02/21/21 02/21/21 02/21/21 carvediloL 12.5 mg PO BID 02/21/21 02/21/21 02/21/21 Previous Rx's Medication Instructions Recorded Last Taken Type Naproxen [Naprosyn] 500 mg PO BID #20 tablet 07/07/21 Unknown Rx traMADoL [Ultram] 50 mg PO Q6HR PRN #7 tablet 07/07/21 Unknown Rx Allergies Allergy/AdvReac Type Severity Reaction Status Date / Time amoxicillin Allergy Unknown Verified 03/04/22 13:47 duloxetine Allergy Rash Verified 03/04/22 13:47 lisinopril Allergy Hives Verified 03/04/22 13:47 metformin Allergy Hives Verified 03/04/22 13:47 Penicillins Allergy Angioedema Verified 03/04/22 13:47 rosuvastatin [From Crestor] Allergy Unknown Verified 03/04/22 13:47 sulpiride Allergy Hives Verified 03/04/22 13:47 codeine AdvReac Seizure Verified 03/04/22 13:47 Heart Score - HEART Score History: Moderately suspicious EKG: Normal Age: 45-65 Risk factors: 1-2 risk factors Troponin: < normal limit HEART Score: 3 - EKG Read Time Time EKG Completed: 14:02 EKG Read Time: 16:09 - Critical Actions Critical Actions: 4-6 pts:12-16.6% risk of adverse cardiac event. Should be admitted ED Review of Systems ROS: Stated complaint: CHEST PAIN Other details as noted in HPI Comment: All other systems reviewed and negative Cardiovascular: chest pain Psychiatric: anxiety ED Past Medical Hx - Past Medical History Hx Hypertension: Yes Hx Heart Attack/AMI: Yes Additional medical history: Degenerative disc disease - Surgical History Hx Cholecystectomy: Yes Additional Surgical History: Bilateral knee surgery, hysterectomy - Social History Smoking Status: Current Every Day Smoker - Medications Home Medications: Home Medications Medication Instructions Recorded Confirmed Last Taken Type Aspirin 81 mg PO DAILY 02/21/21 02/21/21 02/21/21 History Montelukast Sodium 10 mg PO DAILY 02/21/21 02/21/21 Unknown History Nitroglycerin 0.4 mg SUBLINGUAL PRN 02/21/21 02/21/21 02/21/21 History Prasugrel 10 mg PO DAILY 02/21/21 02/21/21 02/21/21 History Pregabalin 100 mg PO TID 02/21/21 02/21/21 02/21/21 History Primidone 50 mg PO BID 02/21/21 02/21/21 02/21/21 History Promethazine 25 mg PO Q6HR 02/21/21 02/21/21 Unknown History Simvastatin 20 mg PO QPM 02/21/21 02/21/21 02/21/21 History Spironolactone 25 mg PO DAILY 02/21/21 02/21/21 02/21/21 History carvediloL 12.5 mg PO BID 02/21/21 02/21/21 02/21/21 History Naproxen [Naprosyn] 500 mg PO BID #20 tablet 07/07/21 Unknown Rx traMADoL [Ultram] 50 mg PO Q6HR PRN #7 tablet 07/07/21 Unknown Rx ED Physical Exam - General Limitations: No Limitations General appearance: alert, in no apparent distress - Head Head exam: Present: normal inspection - Eye Eye exam: Present: normal appearance Pupils: Present: normal accommodation - ENT ENT exam: Present: normal exam, normal orophraynx, mucous membranes moist - Neck Neck exam: Present: normal inspection, full ROM. Absent: tenderness - Respiratory Respiratory exam: Present: normal lung sounds bilaterally, respiratory distress - Cardiovascular Cardiovascular Exam: Present: regular rate, normal rhythm, normal heart sounds - GI/Abdominal GI/Abdominal exam: Present: soft, distended, normal bowel sounds. Absent: tenderness, guarding, rebound - Extremities Exam Extremities exam: Present: normal inspection, full ROM, normal capillary refill. Absent: tenderness, pedal edema - Back Exam Back exam: Absent: tenderness - Neurological Exam Neurological exam: Present: alert, oriented X3 - Psychiatric Psychiatric exam: Present: normal affect, normal mood - Skin Skin exam: Present: warm, normal color ED Course Vital Signs 03/04/22 03/04/22 03/04/22 13:44 14:25 14:51 Temperature 97 F L Pulse Rate 80 67 Respiratory 19 Rate Blood Pressure 124/66 Blood Pressure 135/82 [Left] O2 Sat by Pulse 99 96 95 Oximetry 03/04/22 03/04/22 17:47 19:00 Temperature 98 F Pulse Rate 70 84 Respiratory 16 18 Rate Blood Pressure Blood Pressure 122/65 122/76 [Left] O2 Sat by Pulse 100 100 Oximetry - Reevaluation(s) Reevaluation #1: 03/04/22 20:41 Pt reevaluated and reports feeling better and was actually seen eating salty chips on her bed. I discussed her unremarkable workup with her and the likelihood of not been her heart but before I could cut her loose will need to get the second troponin. She and her family says they will rather signed out AMA and follow up with her PCP and Piping Supervisor. BENITA score - Benita Score Age > 65: (0) No Aspirin use within the Past 7 Days: (1) Yes 3 or more CAD Risk Factors: (0) No 2 or more Angina events in past 24 hrs: (1) Yes Known CAD with more than 50% Stenosis: (0) No Elevated Cardiac Markers: (0) No ST Deviation Greater than 0.5mm: (0) No BENITA Score: 2 ED Medical Decision Making - Lab Data Result diagrams: 03/04/22 15:53 03/04/22 15:53 - EKG Data -: EKG Interpreted by Me EKG shows normal: sinus rhythm Rate: normal - EKG Data 03/04/22 16:12 Noted with normal sinus rhythm at a rate of 67 bpm, normal QT but with nonspecific ST wave abnormality in this abnormal ECG. - Medical Decision Making Here with chest pain/pressure associated with nausea and non bloody emesis--differential could be but not limited to myocardial infarction, pulmonary embolism, costochondritis, anxiety, gastritis, GERD, pancreatitis, and or pyelonephritis--in order to rule out the above-- so will go ahead and order routine cardiopulmonary work-up that include troponin, EKG, chest x-ray, BNP, CKMB, and CBC, CMP and urinalysis for any correctable infectious process or electrolyte abnormality as a cause. Given in the meantime while waiting for the labs-- Pt have already given nitro by EMS, given in the ED morphine 4mg IV x 1 and Promethazine 25 mg Iv x 1-- Critical care attestation.: If time is entered above; I have spent that time in minutes in the direct care of this critically ill patient, excluding procedure time. ED Disposition Clinical Impression: Anxiety Chest pain Qualifiers: Chest pain type: unspecified Qualified Code(s): R07.9 - Chest pain, unspecified Disposition: LEFT AGAINST MEDICAL ADVICE Is pt being admited?: No Does the pt Need Aspirin: No Condition: Stable Instructions: Nonspecific Chest Pain, Adult Referrals: TRE RADFORD MD [Primary Care Provider] - 3-5 Days Time of Disposition: 05:43
[2022-03-04 16:16] LABS: Basophils # (Auto) 0.1 K/mm3 (0.0-0.1); Basophils % (Auto) 0.6 % (0.0-1.8); Eosinophils # (Auto) 0.1 K/mm3 (0.0-0.4); Eosinophils % (Auto) 1.8 % (0.0-4.3); Hematocrit 36.8 % (30.3-42.9); Hemoglobin 12.4 gm/dl (10.1-14.3); Lymphocytes # (Auto) 2.4 K/mm3 (1.2-5.4); Lymphocytes % (Auto) 28.3 % (13.4-35.0); Mean Corpuscular HGB Conc 34 % (30-34); Mean Corpuscular Volume 86 fl (79-97); Monocytes # (Auto) 0.5 K/mm3 (0.0-0.8); Monocytes % (Auto) 5.6 % (0.0-7.3); Platelet Count 224 K/mm3 (140-440); Red Blood Count 4.28 M/mm3 (3.65-5.03); Red Cell Distribution Width 14.2 % (13.2-15.2)
[2022-03-04 16:27] LABS: INR 0.97 (0.87-1.13)
[2022-03-04 16:28] LABS: Partial Thromboplastin Time 27.5 Sec. (24.2-36.6)
[2022-03-04 16:29] LABS: Alanine Aminotransferase 14 units/L (7-56); Albumin 3.8 g/dL (3.9-5); BUN/Creatinine Ratio 19; Blood Urea Nitrogen 17 mg/dL (7-17); Calcium 9.3 mg/dL (8.4-10.2); Hemolysis Index 8
[2022-03-05 01:15] VITALS: BP 122/76
--- NOTE | 2022-03-05 09:33 | Electrocardiograph Report ---
[facility] Test Date: 2022-03-04 Test Time: 14:01:37 Pat Name: LAURYN LEACH Department: Room: Gender: F Bioassayist: NURSE : 1965 Requested By: KARINA LARIOS Order Number: [id number] Reading MD: Dejuan Valles Measurements Intervals [place] Rate: 67 P: 18 SC: 166 QRS: 12 QRSD: 83 T: 17 QT: 420 QTc: 444 Interpretive Statements Sinus rhythm Abnormal T, consider ischemia, anterior leads Compared to ECG 02/21/2021 12:42:25 Possible ischemia now present T-wave abnormality still present Electronically Signed On 03-05-2022 9:33:20 EDT by Dejuan Valles
== END 2022-03-04 21:15 | disposition left against medical advice (07) ==
LOC: ED 13:44
DX: R07.9 Chest pain, unspecified (principal); F41.9 Anxiety disorder, unspecified; I10 Essential (primary) hypertension; Z90.49 Acquired absence of other specified parts of digestive tract; F17.200 Nicotine dependence, unspecified, uncomplicated; Z79.899 Other long term (current) drug therapy; Z88.6 Allergy status to analgesic agent; Z88.1 Allergy status to other antibiotic agents; Z88.0 Allergy status to penicillin; Z91.09 Other allergy status, other than to drugs and biological substances
CPT/HCPCS: 36415; 71045; 80053; 83690; 84484; 85025; 85379; 85610; 85730; 93005; 96374; 99284; J2270; Q0169

== ENCOUNTER 2022-05-13 15:43 | Observation (INO) | payer MEDICARE ==
[2022-05-13] MEDS ORDERED: NITROGLYCERIN 0.4 MG TAB SUBL SL PRN ×2 (15:56→19:46)
[2022-05-13] MEDS ORDERED: MORPHINE 4 MG/1 ML INJ IV ONE (15:56)
[2022-05-13] MEDS ORDERED: SODIUM CHLORIDE 0.9% 1000 ML 1,000 ML IV ONE (16:00)
--- NOTE | 2022-05-13 16:04 | Emergency Department Report ---
ED General Adult HPI - General Chief complaint: Chest Pain Stated complaint: CHEST PAIN/NAUSEA/VOMITTING PUI?: No Time Seen by Provider: 05/13/22 15:55 Source: patient, EMS Mode of arrival: Stretcher Limitations: No Limitations - History of Present Illness Initial comments: This is a 57-year-old female with medical history hypertension atrial fibrillation COPD and also prediabetes; patient said that she also has a history of myocardial infarction had 1 stent placement back in 2020. Patient said that she had a stress test this past January and while having the stress that she had a heart attack but they did not do any cardiac cath; state that this was a [facility]. Patient states the chest pain started about 40 minutes ago and is a aching pressure chest discomfort rating to the neck jaw and also left shoulder and also left arm. According to the EMS they have given 1 sublingual nitro and also aspirin and sub lingual nitro did not help. Patient denies any other symptoms denies fever chill night sweat dizziness blurred vision lightheadedness headache tinnitus ear pain runny nose sore throat loss of taste or smell palpitation short of breath cough abdominal pain nausea vomiting diarrhea constipation joint pain muscle pain new rash and heat or cold intolerance. - Related Data Home Medications Medication Instructions Recorded Confirmed Last Taken Aspirin 81 mg PO DAILY 02/21/21 02/21/21 02/21/21 Montelukast Sodium 10 mg PO DAILY 02/21/21 02/21/21 Unknown Nitroglycerin 0.4 mg SUBLINGUAL PRN 02/21/21 02/21/21 02/21/21 Prasugrel 10 mg PO DAILY 02/21/21 02/21/21 02/21/21 Pregabalin 100 mg PO TID 02/21/21 02/21/21 02/21/21 Primidone 50 mg PO BID 02/21/21 02/21/21 02/21/21 Promethazine 25 mg PO Q6HR 02/21/21 02/21/21 Unknown Simvastatin 20 mg PO QPM 02/21/21 02/21/21 02/21/21 Spironolactone 25 mg PO DAILY 02/21/21 02/21/21 02/21/21 carvediloL 12.5 mg PO BID 02/21/21 02/21/21 02/21/21 Previous Rx's Medication Instructions Recorded Last Taken Type Naproxen [Naprosyn] 500 mg PO BID #20 tablet 07/07/21 Unknown Rx traMADoL [Ultram] 50 mg PO Q6HR PRN #7 tablet 07/07/21 Unknown Rx Allergies Allergy/AdvReac Type Severity Reaction Status Date / Time amoxicillin Allergy Unknown Verified 05/13/22 15:49 duloxetine Allergy Rash Verified 05/13/22 15:49 lisinopril Allergy Hives Verified 05/13/22 15:49 metformin Allergy Hives Verified 05/13/22 15:49 Penicillins Allergy Angioedema Verified 05/13/22 15:49 rosuvastatin [From Crestor] Allergy Unknown Verified 05/13/22 15:49 sulpiride Allergy Hives Verified 05/13/22 15:49 codeine AdvReac Seizure Verified 05/13/22 15:49 ED Review of Systems ROS: Stated complaint: CHEST PAIN/NAUSEA/VOMITTING Other details as noted in HPI Comment: All other systems reviewed and negative ED Past Medical Hx - Past Medical History Hx Hypertension: Yes Hx Heart Attack/AMI: Yes Hx COPD: Yes Additional medical history: Atrial fibrillation, Degenerative disc disease - Surgical History Hx Cholecystectomy: Yes Additional Surgical History: Bilateral knee surgery, hysterectomy - Social History Smoking Status: Current Every Day Smoker - Medications Home Medications: Home Medications Medication Instructions Recorded Confirmed Last Taken Type Aspirin 81 mg PO DAILY 02/21/21 02/21/21 02/21/21 History Montelukast Sodium 10 mg PO DAILY 02/21/21 02/21/21 Unknown History Nitroglycerin 0.4 mg SUBLINGUAL PRN 02/21/21 02/21/21 02/21/21 History Prasugrel 10 mg PO DAILY 02/21/21 02/21/21 02/21/21 History Pregabalin 100 mg PO TID 02/21/21 02/21/21 02/21/21 History Primidone 50 mg PO BID 02/21/21 02/21/21 02/21/21 History Promethazine 25 mg PO Q6HR 02/21/21 02/21/21 Unknown History Simvastatin 20 mg PO QPM 02/21/21 02/21/21 02/21/21 History Spironolactone 25 mg PO DAILY 02/21/21 02/21/21 02/21/21 History carvediloL 12.5 mg PO BID 02/21/21 02/21/21 02/21/21 History Naproxen [Naprosyn] 500 mg PO BID #20 tablet 07/07/21 Unknown Rx traMADoL [Ultram] 50 mg PO Q6HR PRN #7 tablet 07/07/21 Unknown Rx ED Physical Exam - General Limitations: No Limitations General appearance: alert, in distress (Appears to be uncomfortable. ) - Head Head exam: Present: atraumatic, normocephalic, normal inspection - Eye Eye exam: Present: normal appearance, PERRL, EOMI Pupils: Present: normal accommodation - ENT ENT exam: Present: normal exam, mucous membranes moist - Neck Neck exam: Present: normal inspection, full ROM - Respiratory Respiratory exam: Present: normal lung sounds bilaterally - Cardiovascular Cardiovascular Exam: Present: regular rate, normal rhythm, normal heart sounds - GI/Abdominal GI/Abdominal exam: Present: soft - Extremities Exam Extremities exam: Present: normal inspection, full ROM, normal capillary refill - Back Exam Back exam: Present: normal inspection, full ROM - Neurological Exam Neurological exam: Present: alert, oriented X3, CN II-XII intact - Psychiatric Psychiatric exam: Present: normal affect, normal mood - Skin Skin exam: Present: normal color ED Course Vital Signs 05/13/22 15:45 Temperature 97 F L Pulse Rate 85 Respiratory 14 Rate Blood Pressure 118/68 [Left] O2 Sat by Pulse 97 Oximetry - Reevaluation(s) Reevaluation #1: 05/13/22 17:41 I have clarify the information with the patient; patient said that she was at [facility] back in November or January where she had a stress test that was positive and a stress test was terminated because patient was having chest pain and received sublingual nitro. After that immediately patient was admitted to the hospital for at least 1 week. During that time patient said that she had not had a [employer] and was discharged from the hospital. I spoke to Dr. Eric who kindly accepted the patient for observation as patient came with index pressure like chest pain. ED Medical Decision Making - Lab Data Result diagrams: 05/13/22 16:32 05/13/22 16:32 - EKG Data -: EKG Interpreted by Me EKG shows normal: sinus rhythm Rate: normal - EKG Data When compared to previous EKG there are: no significant change Interpretation: no acute changes 05/13/22 16:53 EKG AT 1642: NSR AT 62 BPM; NO ST ELEVATION OR DEPRESSION; NO Q WAVES. Critical care attestation.: If time is entered above; I have spent that time in minutes in the direct care of this critically ill patient, excluding procedure time. ED Disposition Clinical Impression: Atypical chest pain Disposition: ADMITTED INPATIENT Is pt being admited?: Yes Does the pt Need Aspirin: Yes Condition: Stable Instructions: Nonspecific Chest Pain, Adult Time of Disposition: 17:41
--- NOTE | 2022-05-13 16:32 | XRay Report ---
CHEST 1 VIEW 05/13/2022 3:14 PM INDICATION / CLINICAL INFORMATION: chest pain. COMPARISON: Chest radiograph 03/04/2022 FINDINGS: SUPPORT DEVICES: None. HEART / MEDIASTINUM: No significant abnormality. LUNGS / PLEURA: No significant pulmonary or pleural abnormality. No pneumothorax. ADDITIONAL FINDINGS: No significant additional findings. IMPRESSION: 1. No acute findings. Signer Name: Ab Alcazar MD Signed: 05/13/2022 4:28 PM Workstation Name: [id number]
[2022-05-13 16:53] LABS: Hematocrit 40.9 % (30.3-42.9); Hemoglobin 13.6 gm/dl (10.1-14.3); Mean Corpuscular HGB Conc 33 % (30-34); Mean Corpuscular Volume 87 fl (79-97); Platelet Count 300 K/mm3 (140-440); Red Blood Count 4.72 M/mm3 (3.65-5.03); Red Cell Distribution Width 14.5 % (13.2-15.2)
[2022-05-13 17:00] LABS: INR 0.87 (0.87-1.13); Partial Thromboplastin Time 27.8 Sec. (24.2-36.6)
[2022-05-13 17:06] LABS: Alanine Aminotransferase 14 units/L (7-56); Albumin 4.1 g/dL (3.9-5); BUN/Creatinine Ratio 11; Blood Urea Nitrogen 11 mg/dL (7-17); Calcium 9.7 mg/dL (8.4-10.2); Chol/HDL Ratio 5.86 %; HDL Cholesterol 38 mg/dL (40-59); Hemolysis Index 38; LDL Cholesterol,Direct 148 mg/dL (50-130)
[2022-05-13 17:51] LABS: Creatine Kinase MB < 1.0 ng/mL (0.0-4.0)
[2022-05-13] MEDS ORDERED: ONDANSETRON 4 MG/2 ML INJ ONE (18:13)
--- NOTE | 2022-05-13 19:18 | History and Physical Report ---
History of Present Illness Date of examination: 05/13/22 Date of admission: 05/13/2022 Chief complaint: Left-sided chest pain for 1 day History of present illness: 57-year-old female with history of hypertension, coronary artery disease, hyperlipidemia and asthma comes in for chest pain which started 1 hour ago radiating to her left shoulder And left arm. Also to the neck and the Jaw. Associated with slight shortness of breath. No nausea or vomiting. No diarrh ea. No diaphoresis. Patient had similar episode in 2020 and had a stent placed. Patient also had a stress test in the last January at [facility]. Patient is on prasugrel. - Past Medical History --Hypertension: Yes --Heart Attack/AMI: Yes --COPD: Yes --Additional medical history: Atrial fibrillation, Degenerative disc disease - Surgical History --Cholecystectomy: Yes Additional Surgical History: Bilateral knee surgery, hysterectomy - Social History --Smoking Status: Current Every Day Smoker - Medications --Home Medications: Home Medications Medication Instructions Recorded Confirmed Last Taken Type Aspirin 81 mg PO DAILY 02/21/21 02/21/21 02/21/21 History Montelukast Sodium 10 mg PO DAILY 02/21/21 02/21/21 Unknown History Nitroglycerin 0.4 mg SUBLINGUAL PRN 02/21/21 02/21/21 02/21/21 History Prasugrel 10 mg PO DAILY 02/21/21 02/21/21 02/21/21 History Pregabalin 100 mg PO TID 02/21/21 02/21/21 02/21/21 History Primidone 50 mg PO BID 02/21/21 02/21/21 02/21/21 History Promethazine 25 mg PO Q6HR 02/21/21 02/21/21 Unknown History Simvastatin 20 mg PO QPM 02/21/21 02/21/21 02/21/21 History Spironolactone 25 mg PO DAILY 02/21/21 02/21/21 02/21/21 History carvediloL 12.5 mg PO BID 02/21/21 02/21/21 02/21/21 History Naproxen [Naprosyn] 500 mg PO BID #20 tablet 07/07/21 Unknown Rx traMADoL [Ultram] 50 mg PO Q6HR PRN #7 tablet 07/07/21 Unknown Rx Review of Systems ROS: Constitutional no weight loss or weight gain no fever or chills HEENT no sore throat no post nasal drip no diplopia Neck no neck stiffness no lymph gland enlargement Chest and lungs no shortness of breath cough or wheezing CVS chest pain present GI no nausea no vomiting no diarrhea Genitourinary system no dysuria no flank pain Musculoskeletal system no muscle pains no joint pains [employer] no syncope no seizures Skin no rash no itching Psychiatric no depression no homicidal or suicidal tendencies Hematologic no lymphedema or bruising Endocrine no polydipsia no polyuria no cold intolerance no heat intolerance Medications and Allergies Allergies Allergy/AdvReac Type Severity Reaction Status Date / Time amoxicillin Allergy Unknown Verified 05/13/22 15:49 lisinopril Allergy Hives Verified 05/13/22 15:49 metformin Allergy Hives Verified 05/13/22 15:49 Penicillins Allergy Angioedema Verified 05/13/22 15:49 rosuvastatin [From Crestor] Allergy Unknown Verified 05/13/22 15:49 sulpiride Allergy Hives Verified 05/13/22 15:49 codeine AdvReac Seizure Verified 05/13/22 15:49 Home Medications Medication Instructions Recorded Confirmed Last Taken Type Aspirin 81 mg PO DAILY 02/21/21 02/21/21 02/21/21 History Montelukast Sodium 10 mg PO DAILY 02/21/21 02/21/21 Unknown History Nitroglycerin 0.4 mg SUBLINGUAL PRN 02/21/21 02/21/21 02/21/21 History Prasugrel 10 mg PO DAILY 02/21/21 02/21/21 02/21/21 History Pregabalin 100 mg PO TID 02/21/21 02/21/21 02/21/21 History Primidone 50 mg PO BID 02/21/21 02/21/21 02/21/21 History Promethazine 25 mg PO Q6HR 02/21/21 02/21/21 Unknown History Simvastatin 20 mg PO QPM 02/21/21 02/21/21 02/21/21 History Spironolactone 25 mg PO DAILY 02/21/21 02/21/21 02/21/21 History carvediloL 12.5 mg PO BID 02/21/21 02/21/21 02/21/21 History Naproxen [Naprosyn] 500 mg PO BID #20 tablet 07/07/21 Unknown Rx traMADoL [Ultram] 50 mg PO Q6HR PRN #7 tablet 07/07/21 Unknown Rx Active Meds: Active Medications Nitroglycerin (Nitroglycerin 0.4 Mg Tab Subl) 0.4 mg SL .Q5MIN PRN PRN Reason: Chest Pain Exam - Constitutional Vitals: Temp Pulse Resp BP Pulse Ox 97 F L 85 14 118/68 100 05/13/22 15:45 05/13/22 15:45 05/13/22 15:45 05/13/22 15:45 05/13/22 15:48 General appearance: Present: no acute distress, well-nourished - EENT Eyes: Present: PERRL ENT: hearing intact, clear oral mucosa - Neck Neck: Present: supple, normal ROM - Respiratory Respiratory effort: normal Respiratory: bilateral: CTA - Cardiovascular Heart rate: 78 Rhythm: regular Heart Sounds: Present: S1 & S2. Absent: rub, click - Extremities Extremities: pulses symmetrical, No edema Peripheral Pulses: within normal limits - Abdominal General gastrointestinal: Present: soft, non-tender, non-distended, normal bowel sounds Female genitourinary: Present: normal - Integumentary Integumentary: Present: clear, warm, dry - Musculoskeletal Musculoskeletal: gait normal, strength equal bilaterally - Psychiatric Psychiatric: appropriate mood/affect, intact judgment & insight - Neurologic Neurologic: CNII-XII intact, moves all extremities HEART Score - HEART Score History: Moderately suspicious Age: 45-65 Risk factors: 1-2 risk factors Troponin: Troponin T < 0.010 ng/mL (0.00-0.029) 05/13/22 16:32 Troponin: < normal limit - Critical Actions Critical Actions: 4-6 pts:12-16.6% risk of adverse cardiac event. Should be admitted Results - Labs CBC & Chem 7: 05/14/22 04:29 05/14/22 04:29 Labs: Laboratory Last Values WBC 7.4 K/mm3 (4.5-11.0) 05/13/22 16:32 RBC 4.72 M/mm3 (3.65-5.03) 05/13/22 16:32 Hgb 13.6 gm/dl (10.1-14.3) 05/13/22 16:32 Hct 40.9 % (30.3-42.9) 05/13/22 16:32 MCV 87 fl (79-97) 05/13/22 16:32 MCH 29 pg (28-32) 05/13/22 16:32 MCHC 33 % (30-34) 05/13/22 16:32 RDW 14.5 % (13.2-15.2) 05/13/22 16:32 Plt Count 300 K/mm3 (140-440) 05/13/22 16:32 PT 12.8 Sec. (12.2-14.9) 05/13/22 16:32 INR 0.87 (0.87-1.13) 05/13/22 16:32 APTT 27.8 Sec. (24.2-36.6) 05/13/22 16:32 Sodium 139 mmol/L (137-145) 05/13/22 16:32 Potassium 4.0 mmol/L (3.6-5.0) 05/13/22 16:32 Chloride 105.7 mmol/L (98-107) 05/13/22 16:32 Carbon Dioxide 20 mmol/L (22-30) L 05/13/22 16:32 Anion Gap 17 mmol/L 05/13/22 16:32 BUN 11 mg/dL (7-17) 05/13/22 16:32 Creatinine 1.0 mg/dL (0.6-1.2) 05/13/22 16:32 Estimated GFR 58 ml/min 05/13/22 16:32 BUN/Creatinine Ratio 11 % 05/13/22 16:32 Glucose 91 mg/dL (65-100) 05/13/22 16:32 Calcium 9.7 mg/dL (8.4-10.2) 05/13/22 16:32 Magnesium 2.00 mg/dL (1.7-2.3) 05/13/22 16:32 Total Bilirubin 0.20 mg/dL (0.1-1.2) 05/13/22 16:32 AST 14 units/L (5-40) 05/13/22 16:32 ALT 14 units/L (7-56) 05/13/22 16:32 Alkaline Phosphatase 110 units/L (35-129) 05/13/22 16:32 Total Creatine Kinase 48 units/L (30-135) 05/13/22 16:32 CK-MB (CK-2) < 1.0 ng/mL (0.0-4.0) 05/13/22 16:32 CK-MB (CK-2) Rel Index 2.0 (0-4) 05/13/22 16:32 Troponin T < 0.010 ng/mL (0.00-0.029) 05/13/22 16:32 Total Protein 6.6 g/dL (6.3-8.2) 05/13/22 16:32 Albumin 4.1 g/dL (3.9-5) 05/13/22 16:32 Albumin/Globulin Ratio 1.6 % 05/13/22 16:32 Triglycerides 299 mg/dL (2-149) H 05/13/22 16:32 Cholesterol 223 mg/dL (50-199) H 05/13/22 16:32 LDL Cholesterol Direct 148 mg/dL (50-130) H 05/13/22 16:32 HDL Cholesterol 38 mg/dL (40-59) L 05/13/22 16:32 Cholesterol/HDL Ratio 5.86 % 05/13/22 16:32 Short CBC 05/13/22 05/14/22 Range/Units 16:32 04:29 WBC 7.4 6.2 (4.5-11.0) K/mm3 Hgb 13.6 12.8 (10.1-14.3) gm/dl Hct 40.9 38.2 (30.3-42.9) % Plt Count 300 251 (140-440) K/mm3 BMP 05/13/22 05/14/22 16:32 04:29 Sodium 139 140 Potassium 4.0 4.6 Chloride 105.7 108.4 H Carbon Dioxide 20 L 22 BUN 11 12 Creatinine 1.0 0.8 Glucose 91 106 H Calcium 9.7 9.0 Cardiac Enzymes 05/13/22 05/13/22 05/14/22 Range/Units 16:32 20:36 04:29 Total Creatine Kinase 48 (30-135) units/L CK-MB (CK-2) < 1.0 (0.0-4.0) ng/mL Troponin T < 0.010 < 0.010 < 0.010 (0.00-0.029) ng/mL Liver Function 08/28/22 08/29/22 Range/Units 16:32 04:29 Total Bilirubin 0.20 0.30 (0.1-1.2) mg/dL AST 14 13 (5-40) units/L ALT 14 12 (7-56) units/L Alkaline Phosphatase 110 102 (35-129) units/L Albumin 4.1 3.7 L (3.9-5) g/dL - Imaging and Cardiology EKG: report reviewed (Sinus rhythm no acute ST-T wave changes) Chest x-ray: report reviewed (No acute findings) Assessment and Plan Advance Directives: Yes (Full code) VTE prophylaxis?: Chemical Plan of care discussed with patient/family: Yes - Patient Problems (1) Acute coronary syndrome Current Visit: Yes Status: Acute Plan to address problem: Serial troponins Lexiscan in the morning Patient has a history of coronary artery disease and patient is on. Patient also had 1 stent last year (2) Hypertension Current Visit: Yes Status: Chronic Qualifiers: Hypertension type: primary hypertension Qualified Code(s): I10 - Essential (primary) hypertension Plan to address problem: Continue antihypertensives and adjust medications (3) Asthma Current Visit: Yes Status: Chronic Plan to address problem: Patient on Singulair for prevention (4) Coronary artery disease Current Visit: No Status: Acute Qualifiers: Coronary Disease-Associated Artery/Lesion type: [place] artery [place] vs. transplanted heart: [place] heart Plan to address problem: S/p 1 stent Continue Effient (5) Hyperlipidemia Current Visit: No Status: Chronic Qualifiers: Hyperlipidemia type: mixed hyperlipidemia Qualified Code(s): E78.2 - Mixed hyperlipidemia Plan to address problem: Continue statins (6) DVT prophylaxis Current Visit: Yes Status: Acute Plan to address problem: On anticoagulation GI prophylaxis (7) Advance care planning Current Visit: Yes Status: Acute Plan to address problem: Disease education conducted, care plan discussed, diagnosis discussed, and prognosis discussed. Patient acknowledges understanding with care plan. +30 minutes.
[2022-05-13] MEDS ORDERED: traMADol 50 MG TAB PO PRN ×2 (19:23→19:51)
[2022-05-13] MEDS ORDERED: ONDANSETRON 4 MG/2 ML INJ IV PRN (19:26)
[2022-05-13] MEDS ORDERED: ACETAMINOPHEN 325 MG TAB PO PRN (19:26)
[2022-05-13] MEDS ORDERED: NON-FORMULARY EACH (Spironolactone 25 MG) PO SCH (19:30)
[2022-05-13] MEDS ORDERED: PRASUGREL 10 MG PO SCH (19:30)
[2022-05-13] MEDS ORDERED: NON-FORMULARY EACH (Aspirin 81 MG) PO SCH (19:30)
[2022-05-13] MEDS ORDERED: NON-FORMULARY EACH (Montelukast Sodium 10 MG) PO SCH (19:30)
[2022-05-13] MEDS ORDERED: NON-FORMULARY EACH (Nitroglycerin 0.4 MG) SUBLINGUAL SCH (19:30)
[2022-05-13] MEDS: ASPIRIN EC 81 MG TAB PO SCH (20:00)
[2022-05-13] MEDS: PREGABALIN 50 MG CAP PO SCH (20:00)
[2022-05-13] MEDS ORDERED: PREGABALIN 100 MG PO SCH (20:00)
[2022-05-13] MEDS ORDERED: oxyCODONE /ACETAMINOPHEN 5-325MG TAB PO PRN (20:15)
[2022-05-13] MEDS ORDERED: METOCLOPRAMIDE 10 MG/2 ML INJ IV PRN (20:15)
[2022-05-13] MEDS ORDERED: MORPHINE 2 MG/1 ML INJ IV PRN (20:15)
[2022-05-13] MEDS ORDERED: PRIMIDONE 50 MG TAB PO SCH (22:00)
[2022-05-13] MEDS ORDERED: PRAVASTATIN 40 MG TAB PO SCH (22:00)
[2022-05-13] MEDS ORDERED: NON-FORMULARY EACH (Carvedilol 12.5 MG) PO SCH (22:00)
[2022-05-13] MEDS ORDERED: PRIMIDONE 50 MG PO SCH (22:00)
[2022-05-13] MEDS: carvediloL 12.5 MG TAB PO SCH (22:00)
[2022-05-13] MEDS: SPIRONOLACTONE 25 MG TAB PO SCH (22:35)
[2022-05-13] MEDS: MONTELUKAST 10 MG TAB PO SCH (22:49)
[2022-05-13] MEDS: HEPARIN 5,000 UNIT/1 ML VIAL SUB-Q SCH ×2 (22:50→23:35)
[2022-05-14 05:09] LABS: Alanine Aminotransferase 12 units/L (7-56); Albumin 3.7 g/dL (3.9-5); BUN/Creatinine Ratio 15; Blood Urea Nitrogen 12 mg/dL (7-17); Hemolysis Index 13
[2022-05-14 05:11] LABS: Hematocrit 38.2 % (30.3-42.9); Hemoglobin 12.8 gm/dl (10.1-14.3); Lymphocytes % (Auto) 36.2 % (13.4-35.0); Mean Corpuscular HGB Conc 34 % (30-34); Mean Corpuscular Volume 88 fl (79-97); Monocytes % (Auto) 5.8 % (0.0-7.3); Platelet Count 251 K/mm3 (140-440); Red Blood Count 4.37 M/mm3 (3.65-5.03); Red Cell Distribution Width 14.4 % (13.2-15.2)
[2022-05-14 05:12] LABS: Basophils # (Auto) 0.1 K/mm3 (0.0-0.1); Basophils % (Auto) 1.5 % (0.0-1.8); Eosinophils # (Auto) 0.2 K/mm3 (0.0-0.4); Lymphocytes # (Auto) 2.2 K/mm3 (1.2-5.4); Monocytes # (Auto) 0.4 K/mm3 (0.0-0.8)
[2022-05-14] MEDS ORDERED: REGADENOSON 0.4 MG/5 ML INJ IV ONE (06:59)
[2022-05-14] MEDS ORDERED: ASPIRIN 325 MG TAB PO SCH (10:00)
--- NOTE | 2022-05-14 10:04 | Electrocardiograph Report ---
[facility] Test Date: 2022-05-13 Test Time: 16:42:57 Pat Name: LAURYN LEACH Department: Room: A467 1 Gender: F Retreader: FELIPE : 1965 Requested By: JUAN MORILLO Order Number: [id number] Reading MD: Dejuan Valles Measurements Intervals [place] Rate: 62 P: 12 WA: 130 QRS: 29 QRSD: 81 T: 35 QT: 438 QTc: 444 Interpretive Statements Sinus rhythm Compared to ECG 03/04/2022 14:01:37 T-wave abnormality no longer present Possible ischemia no longer present Electronically Signed On 05-14-2022 10:03:40 EDT by Dejuan Valles
[2022-05-14] MEDS ORDERED: MIDAZOLAM 2 MG/2 ML INJ ONE (11:15)
[2022-05-14] MEDS ORDERED: HEPARIN/NS 5000 UNIT/500ML 1,000 ML IR ONE (11:15)
[2022-05-14] MEDS ORDERED: HEPARIN 10,000 UNITS/10 ML VIAL ONE (11:15)
[2022-05-14] MEDS ORDERED: fentaNYL 100 MCG/2 ML INJ ONE (11:16)
[2022-05-14] MEDS ORDERED: NITROGLYCERIN SYRINGE 0 ML ONE (11:16)
[2022-05-14] MEDS ORDERED: VERAPAMIL 5 MG/2 ML INJ ONE (11:16)
[2022-05-14] MEDS ORDERED: LIDOCAINE (1%) 10 MG/1 ML VIAL 20 ML MDV ONE (11:17)
[2022-05-14] MEDS ORDERED: SODIUM CHLORIDE 0.9% 1000 ML 1,000 ML ONE (11:17)
[2022-05-14] MEDS: ASPIRIN EC 81 MG TAB PO SCH (11:27)
--- NOTE | 2022-05-14 12:04 | Consultation ---
History of Present Illness Consult reason: chest pain History of present illness: 57-year-old female with history of of sleep apnea, hypertension, coronary artery disease status post PCI and stent in October 2020, hyperlipidemia, asthma was admitted with chest pain radiating to her neck and jaw associate with some eneida rtness of breath. she was ruled out for acute WI and was referred for a nuclear stress test. Patient refused to take Lexiscan as she had a bad reaction last time. She wanted to do a treadmill nuclear. While walking on a treadmill in stage I patient started to have severe chest pain that has forced to stop the treadmill stress test. She reached only 75% target heart rate. Test was stopped. Given the symptom limited positive treadmill stress test and history of CAD with similar symptoms in the past discussed option of cath versus medical management. She prefered cardiac cath. Chest pain resolved after resting for a few minutes. Now she is symptom-free Past History Past Medical History: CAD, hypertension, hyperlipidemia, other (Asthma, sleep ap [place]) Past Surgical History: cholecystectomy, PTCA Social history: smoking Family history: no significant family history Medications and Allergies Allergies Allergy/AdvReac Type Severity Reaction Status Date / Time amoxicillin Allergy Unknown Verified 05/14/22 07:09 lisinopril Allergy Hives Verified 05/14/22 07:09 metformin Allergy Hives Verified 05/14/22 07:09 Penicillins Allergy Angioedema Verified 05/14/22 07:09 rosuvastatin [From Crestor] Allergy Unknown Verified 05/14/22 07:09 sulpiride Allergy Hives Verified 05/14/22 07:09 codeine AdvReac Seizure Verified 05/14/22 07:09 Home Medications Medication Instructions Recorded Confirmed Last Taken Type Aspirin 81 mg PO DAILY 02/21/21 02/21/21 02/21/21 History Montelukast Sodium 10 mg PO DAILY 02/21/21 02/21/21 Unknown History Nitroglycerin 0.4 mg SUBLINGUAL PRN 02/21/21 02/21/21 02/21/21 History Prasugrel 10 mg PO DAILY 02/21/21 02/21/21 02/21/21 History Pregabalin 100 mg PO TID 02/21/21 02/21/21 02/21/21 History Primidone 50 mg PO BID 02/21/21 02/21/21 02/21/21 History Promethazine 25 mg PO Q6HR 02/21/21 02/21/21 Unknown History Simvastatin 20 mg PO QPM 02/21/21 02/21/21 02/21/21 History Spironolactone 25 mg PO DAILY 02/21/21 02/21/21 02/21/21 History carvediloL 12.5 mg PO BID 02/21/21 02/21/21 02/21/21 History Naproxen [Naprosyn] 500 mg PO BID #20 tablet 07/07/21 Unknown Rx traMADoL [Ultram] 50 mg PO Q6HR PRN #7 tablet 07/07/21 Unknown Rx Active Meds: Active Medications Acetaminophen (Acetaminophen 325 Mg Tab) 650 mg PO Q4H PRN PRN Reason: Pain MILD(1-3)/Fever >100.5/ROMAN Last Admin: 05/13/22 23:44 Dose: 650 mg Aspirin (Aspirin Ec 81 Mg Tab) 81 mg PO QDAY [facility] Last Admin: 05/14/22 11:27 Dose: 81 mg Carvedilol (Carvedilol 12.5 Mg Tab) 12.5 mg PO BID [facility] Last Admin: 05/13/22 22:00 Dose: 12.5 mg Heparin Sodium (Porcine) (Heparin 5,000 Unit/1 Ml Vial) 5,000 unit SUB-Q Q12HR [facility] Last Admin: 05/13/22 23:35 Dose: Not Given Metoclopramide HCl (Metoclopramide 10 Mg/2 Ml Inj) 10 mg IV Q6H PRN PRN Reason: Nausea And Vomiting Montelukast Sodium (Montelukast 10 Mg Tab) 10 mg PO QDAY [facility] Last Admin: 05/13/22 22:49 Dose: 10 mg Morphine Sulfate (Morphine 2 Mg/1 Ml Inj) 2 mg IV Q4H PRN PRN Reason: Pain, Moderate (4-6) Nitroglycerin (Nitroglycerin 0.4 Mg Tab Subl) 0.4 mg SL .Q5MIN PRN PRN Reason: Chest Pain Ondansetron HCl (Ondansetron 4 Mg/2 Ml Inj) 4 mg IV Q8H PRN PRN Reason: Nausea And Vomiting Oxycodone/Acetaminophen (Oxycodone /Acetaminophen 5-325mg Tab) 1 tab PO Q6H PRN PRN Reason: Pain, Moderate (4-6) Pravastatin Sodium (Pravastatin 40 Mg Tab) 40 mg PO QHS [facility] Last Admin: 05/13/22 22:00 Dose: 40 mg Pregabalin (Pregabalin 50 Mg Cap) 100 mg PO TID [facility] Last Admin: 05/13/22 20:00 Dose: 100 mg Primidone (Primidone 50 Mg Tab) 50 mg PO BID [facility] Last Admin: 05/13/22 22:00 Dose: 50 mg Sodium Chloride (Sodium Chloride 0.9% 10 Ml Flush Syringe) 10 ml IV BID [facility] Last Admin: 05/13/22 22:00 Dose: 10 ml Sodium Chloride (Sodium Chloride 0.9% 10 Ml Flush Syringe) 10 ml IV PRN PRN PRN Reason: LINE FLUSH Spironolactone (Spironolactone 25 Mg Tab) 25 mg PO QDAY [facility] Last Admin: 05/13/22 22:35 Dose: 25 mg Tramadol HCl (Tramadol 50 Mg Tab) 50 mg PO Q6H PRN PRN Reason: Pain, Moderate (4-6) Review of Systems Constitutional: no weight loss Ears, nose, mouth and throat: no ear pain Cardiovascular: chest pain, shortness of breath, no palpitations, no lightheadedness, no claudication Respiratory: cough Gastrointestinal: no abdominal pain, no nausea, no vomiting Musculoskeletal: no shooting arm pain Integumentary: no rash Neurological: no head injury, no weakness Psychiatric: no anxiety Endocrine: no palpatations Hematologic/Lymphatic: no easy bruising Physical Examination Vital Signs Temp Pulse Resp BP Pulse Ox 97 F L 85 14 118/68 97 05/13/22 15:45 05/13/22 15:45 05/13/22 15:45 05/13/22 15:45 05/13/22 15:45 General appearance: no acute distress HEENT: Positive: PERRL Neck: Negative: JVD/HJR Cardiac: Positive: Reg Rate and Rhythm, S1/S2 Lungs: Positive: clear to auscultation, No Wheeze, Rales, Rhonchi Neuro: Positive: Grossly Intact Abdomen: Positive: Soft Female genitourinary: normal Skin: Negative: Rash Extremities: Absent: edema Results 05/14/22 04:29 05/14/22 04:29 Cardiac Enzymes 05/13/22 05/14/22 Range/Units 16:32 04:29 AST 14 13 (5-40) units/L CK-MB (CK-2) < 1.0 (0.0-4.0) ng/mL Coagulation 05/13/22 Range/Units 16:32 PT 12.8 (12.2-14.9) Sec. INR 0.87 (0.87-1.13) APTT 27.8 (24.2-36.6) Sec. Lipids 05/13/22 Range/Units 16:32 Triglycerides 299 H (2-149) mg/dL Cholesterol 223 H (50-199) mg/dL HDL Cholesterol 38 L (40-59) mg/dL Cholesterol/HDL Ratio 5.86 % CBC 05/13/22 05/14/22 Range/Units 16:32 04:29 WBC 7.4 6.2 (4.5-11.0) K/mm3 RBC 4.72 4.37 (3.65-5.03) M/mm3 Hgb 13.6 12.8 (10.1-14.3) gm/dl Hct 40.9 38.2 (30.3-42.9) % Plt Count 300 251 (140-440) K/mm3 Lymph # (Auto) 2.2 (1.2-5.4) K/mm3 [place] # (Auto) 0.4 (0.0-0.8) K/mm3 Eos # (Auto) 0.2 (0.0-0.4) K/mm3 Baso # (Auto) 0.1 (0.0-0.1) K/mm3 Comprehensive Metabolic Panel 05/13/22 05/14/22 Range/Units 16:32 04:29 Sodium 139 140 (137-145) mmol/L Potassium 4.0 4.6 (3.6-5.0) mmol/L Chloride 105.7 108.4 H (98-107) mmol/L Carbon Dioxide 20 L 22 (22-30) mmol/L BUN 11 12 (7-17) mg/dL Creatinine 1.0 0.8 (0.6-1.2) mg/dL Glucose 91 106 H (65-100) mg/dL Calcium 9.7 9.0 (8.4-10.2) mg/dL AST 14 13 (5-40) units/L ALT 14 12 (7-56) units/L Alkaline Phosphatase 110 102 (35-129) units/L Total Protein 6.6 5.9 L (6.3-8.2) g/dL Albumin 4.1 3.7 L (3.9-5) g/dL - Imaging and Cardiology Cardiac cath: pending EKG interpretations - Telemetry EKG Rhythm: Sinus Rhythm (Nonspecific ST changes) Assessment and Plan Patient symptom limited abnormal treadmill stress test. We will perform coronary angiography. Continue to optimize medical therapy. Post-cath update She has normal coronaries with patent stent in the left circumflex artery. Her LVEDP is 30 mmHg. Continue beta-demar. Add Lasix while hospitalized while in the hospital and can take it at home for 3 days and then as needed - Patient Problems (1) Chest pain Current Visit: Yes Status: Acute (2) Abnormal cardiovascular stress test Current Visit: Yes Status: Acute
--- NOTE | 2022-05-14 13:32 | Discharge Summary ---
Providers - Providers Date of Admission: 05/13/22 19:26 Date of discharge: 05/14/22 Attending physician: PAM SOW MD 05/14/22 10:35 Consult to Physician [CONS] Routine Comment: Consulting Provider: NATASHA MCFARLANE Physician Instructions: Reason For Exam: Chest pain Primary care physician: TRE RADFORD Hospitalization Reason for admission: Acute coronary syndromeruled out, atypical chest pain Condition: Stable Pertinent studies: Reviewed. Procedures: Nuclear treadmill test, left heart catheterization Hospital course: Patient is a 57-year-old female with past medical history of hypertension, atrial fibrillation, COPD, prediabetes, CAD complicated by prior myocardial infarction requiring 1 stent (2020) who presented to the ED due to complaints of chest pain starting approximately 40 minutes prior to presentation. She described the pain as aching pressure that radiated from her chest to her neck, jaw, and left shoulder/arm. Patient arrived via EMS where she was given 1 nitroglycerin sublingual in addition to aspirin 325 mg. Patient endorsed sublingual nitrogen as not alleviating her symptoms. On presentation, patient was hemodynamically stable with unremarkable labs. EKG was normal sinus rhythm at 62 bpm without any significant ST changes. Patient was admitted for cardiac work-up and to undergo a myocardial perfusion scan. Initially the patient refused the procedure due to prior adverse reaction to the medication in the past. She did agree to having a nuclear treadmill test. During this treadmill exam, the patient developed chest pain requiring the test to be stopped. The patient then underwent left heart catheterization shortly afterwards with cardiology where she was found to have unremarkable coronaries with a patent stent in her left circumflex artery. Her LVEDP is 30 mmHg. Patient will continue with her medical management, and she is medically clear for discharge. Disposition: 01 HOME / SELF CARE / HOMELESS Final Discharge Diagnosis (Prints w/discharge instructions): Acute coronary syndromeruled out, atypical chest pain, hypertension, mild intermittent asthma, coronary artery disease with history of prior GA requiring stent, hyperlipidemia Time spent for discharge: 45 min Core Measure Documentation - Palliative Care Palliative Care/ Comfort Measures: Not Applicable - Core Measures Any of the following diagnoses?: none Exam - Constitutional Vitals: Temp Pulse Resp BP Pulse Ox 98.1 F 65 17 135/60 98 05/14/22 09:16 05/14/22 09:16 05/14/22 09:16 05/14/22 09:16 05/14/22 09:16 General appearance: Present: no acute distress, well-nourished - EENT Eyes: Present: PERRL, EOM intact, discharge ENT: hearing intact, clear oral mucosa, dentition normal - Neck Neck: Present: supple, normal ROM - Respiratory Respiratory effort: normal Respiratory: bilateral: CTA - Cardiovascular Rhythm: regular Heart Sounds: Present: S1 & S2 - Extremities Extremities: no ischemia, pulses intact, pulses symmetrical, No edema, normal temperature, normal color, Full ROM Peripheral Pulses: within normal limits - Abdominal General gastrointestinal: Present: soft, non-tender, non-distended, normal bowel sounds Female genitourinary: Present: deferred - Rectal Rectal Exam: deferred - Integumentary Integumentary: Present: clear, warm, dry - Musculoskeletal Musculoskeletal: strength equal bilaterally - Psychiatric Psychiatric: appropriate mood/affect, intact judgment & insight, memory intact, cooperative - Neurologic Neurologic: CNII-XII intact, moves all extremities - Allied Health Allied health notes reviewed: nursing Plan Activity: advance as tolerated Diet: low salt Additional Instructions: Patient is a 57-year-old female with past medical history of hypertension, atrial fibrillation, COPD, prediabetes, CAD complicated by prior myocardial infarction requiring 1 stent (2020) who presented to the ED due to complaints of chest pain starting approximately 40 minutes prior to presentation. She described the pain as aching pressure that radiated from her chest to her neck, jaw, and left shoulder/arm. Patient arrived via EMS where she was given 1 nitroglycerin sublingual in addition to aspirin 325 mg. Patient endorsed sublingual nitrogen as not alleviating her symptoms. On presentation, patient was hemodynamically stable with unremarkable labs. EKG was normal sinus rhythm at 62 bpm without any significant ST changes. Patient was admitted for cardiac work-up and to undergo a myocardial perfusion scan. Initially the patient refused the procedure due to prior adverse reaction to the medication in the past. She did agree to having a nuclear treadmill test. During this treadmill exam, the patient developed chest pain requiring the test to be stopped. The patient then underwent left heart catheterization shortly afterwards with cardiology where she was found to have unremarkable coronaries with a patent stent in her left circumflex artery. Her LVEDP is 30 mmHg. Patient will continue with her medical management, and she is medically clear for discharge. Care Plan Goals: Patient is medically clear for discharge. Assessment: Patient is a 57-year-old female with past medical history of hypertension, atrial fibrillation, COPD, prediabetes, CAD complicated by prior myocardial infarction requiring 1 stent (2020) who presented to the ED due to complaints of chest pain starting approximately 40 minutes prior to presentation. She described the pain as aching pressure that radiated from her chest to her neck, jaw, and left shoulder/arm. Patient arrived via EMS where she was given 1 nitroglycerin sublingual in addition to aspirin 325 mg. Patient endorsed sublingual nitrogen as not alleviating her symptoms. On presentation, patient was hemodynamically stable with unremarkable labs. EKG was normal sinus rhythm at 62 bpm without any significant ST changes. Patient was admitted for cardiac work-up and to undergo a myocardial perfusion scan. Initially the patient refused the procedure due to prior adverse reaction to the medication in the past. She did agree to having a nuclear treadmill test. During this treadmill exam, the patient developed chest pain requiring the test to be stopped. The patient then underwent left heart catheterization shortly afterwards with cardiology where she was found to have unremarkable coronaries with a patent stent in her left circumflex artery. Her LVEDP is 30 mmHg. Patient will continue with her medical management, and she is medically clear for discharge. Forms: Work/School Release Form
[2022-05-14] MEDS: carvediloL 12.5 MG TAB PO SCH (13:55)
[2022-05-14] MEDS: MONTELUKAST 10 MG TAB PO SCH (13:55)
[2022-05-14] MEDS: SPIRONOLACTONE 25 MG TAB PO SCH (13:55)
[2022-05-14] MEDS: HEPARIN 5,000 UNIT/1 ML VIAL SUB-Q SCH (13:56)
[2022-05-14] MEDS: PREGABALIN 50 MG CAP PO SCH (13:56)
[2022-05-14 13:57] VITALS: BP 135/64
[2022-05-14] MEDS ORDERED: AMOXICILLIN 500 MG CAP PO SCH (14:00)
[2022-05-14] MEDS ORDERED: NON-FORMULARY EACH (Simvastatin 20 MG) PO SCH (18:00)
== END 2022-05-14 18:54 | disposition home or self-care (01) ==
LOC: ED 15:43 → 4A 19:26 → INTOOBSV 19:26 → 4A 21:48
PROVIDERS: ADMIT Internal Medicine; ATTEND Student in an Organized Health Care Education/Training Program
DX: R07.89 Other chest pain (principal); I10 Essential (primary) hypertension; I25.10 Atherosclerotic heart disease of native coronary artery without angina pectoris; E78.5 Hyperlipidemia, unspecified; J44.9 Chronic obstructive pulmonary disease, unspecified; I48.91 Unspecified atrial fibrillation; I25.2 Old myocardial infarction; M19.90 Unspecified osteoarthritis, unspecified site; F17.200 Nicotine dependence, unspecified, uncomplicated; Z79.899 Other long term (current) drug therapy
CPT/HCPCS: 36415; 71045; 80053; 80061; 82550; 82553; 83735; 84484; 85025; 85027; 85610; 85730; 93005; 93017; 93458; 96372; 96374; 99285; C1887; C1894; G0378; J1644; J2250; J2270; J2405; J3010; J7030; J1815; Q9967